=== PATIENT | female | born 1950 | race Caucasian/White ===

== ENCOUNTER 2018-12-07 17:29 | Inpatient (IN) | payer MEDICARE, OTHER ==
--- NOTE | 2018-12-07 17:51 | ED Physician Chart ---
ED Chief Complaint/HPI - Patient Information Date Seen:: 12/07/18 Time Seen:: 17:45 Chief Complaint:: change mental status withpre existing Allergies:: Allergies Allergy/AdvReac Type Severity Reaction Status Date / Time No Known Allergies Allergy Verified 12/07/18 17:35 Vitals:: Vital Signs - 8 hr 12/07/18 17:36 Temp 97.3 F HR 74 RR 18 BP 138/68 O2 Sat % 98 Review:: Nurse's Note Reviewed, Transfer documents Reviewed ED Review of Systems - Review of Systems General/Constitutional: No fever (equivocal historian) ED Past Medical History - Past Medical History Past Medical History: HTN, Dementia Social History: Alcohol ED Physical Exam - Physical Examination General/Constitutional: Alert, No distress, Non-toxic appearing Head: Atraumatic Eyes: Lids, conjuctiva normal Skin: Nl inspection ENMT: External ears, nose nl Neck: Nontender Respiratory: Nl effort/Exclusion Cardio Vascular: RRR GI: No tenderness/rebounding/guarding : No CVA tenderness Extremities: No tenderness or effusion Neuro/Psych: Alert/oriented Misc: Normal back ED Assessment - Assessment General Assessment: psyche break ED Septic Shock - . Is Septic Shock (SBP<90, OR Lactate>4 mmol\L) present?: No - <6hrs of presentation: Vital Signs: Vital Signs - 8 hr 12/07/18 17:36 Temp 97.3 F HR 74 RR 18 BP 138/68 O2 Sat % 98 ED Reassessment (Disposition) - Reassessment Reassessment Condition:: Unchanged - Patient Disposition Discharge/Transfer:: Acute Care w/in this hosp
[2018-12-07 18:05] LABS: % BASOPHILS 0.6 % (0.0-2.0); % EOSINOPHILS 2.6 % (0.0-5.0); % LYMPHOCYTES 28.4 % (20.0-50.0); % MONOCYTES 7.2 % (2.0-10.0); % NEUTROPHILS 61.2 % (40.0-80.0); BASOPHILE ABSOLUTE 0.1 Th/cumm (0-0.2); EOSINOPHILE ABSOLUTE 0.2 Th/cmm (0.1-0.4); HEMATOCRIT 41.4 % (41.0-60); HEMOGLOBIN 13.2 gm/dL (12-16); LYMPHOCYTE ABSOLUTE 2.5 Th/cmm (1.5-3.0); MEAN CELL VOLUME 87.8 fl (81-100); MEAN CORPUSCULAR HGB CONC 31.9 pg (28.0-36.0); MEAN PLATELET VOLUME 8.5 fl; MONOCYTE ABSOLUTE 0.6 Th/cmm (0.3-1.0); NEUTROPHILE ABSOLUTE 5.4 Th/cmm (1.8-8.0); PLATELET COUNT 257 Th/cmm (150-400); RED BLOOD COUNT 4.71 Mil/cmm (3.80-5.20); RED CELL DISTRIBUTION WIDTH 13.2 % (11.5-20.0); WHITE BLOOD COUNT 8.8 Th/cmm (4.8-10.8)
[2018-12-07 18:23] LABS: ALB/GLOB RATIO 1.4 (1.0-1.8); ALBUMIN 4.2 gm/dL (3.7-5.3); ALKALINE PHOSPHATASE 62 U/L (34-104); ANION GAP 11.6 (7.0-16.0); BILIRUBIN,TOTAL 0.4 mg/dL (0.3-1.0); BUN - UREA NITROGEN 17 mg/dL (7-25); CALCIUM SERUM 10.4 mg/dL (8.6-10.3); CARBON DIOXIDE 24.4 mEq/L (21.0-31.0); CHLORIDE 104 mEq/L (98-107); CREATININE - SERUM 0.7 mg/dL (0.6-1.2); GFR AFRICAN-AMERICAN > 60.0 ml/min (>90); GFR NON AFRICAN-AMERICAN > 60.0 ml/min; GLUCOSE 102 mg/dL (70-105); SGOT 18 U/L (13-39); SGPT/ALT 17 U/L (7-52); SODIUM SERUM 136 mEq/L (136-145); TOTAL PROTEIN,SERUM 7.3 gm/dL (6.0-8.3)
[2018-12-07 19:59] VITALS: BP 128/70
[2018-12-07] MEDS ORDERED: Non-Formulary Item 1 EA (Atorvastatin Calcium [Lipitor] 1 TAB) PO SCH (21:00)
[2018-12-08 07:23] LABS: CHOLESTEROL 169 mg/dL (<200); HDL -HIGH DENSITY LIPOPROTEIN 44 mg/dL (23-92); TRIGLYCERIDES 109 mg/dL (<150)
--- NOTE | 2018-12-08 08:10 | History and Physical ---
History of Present Illness - HPI Chief Complaint: Psychosis HPI: 68 y/o female who presents to [facility] from [facility] from [place], [place] for change in behavior and increase agitation, confusion, and disorientation. Patient has a PMH which includes Alzheimer's dementia, HTN, Hyperlipidemia, Depression, hypokalemia. While in the ER patient had initial labwork which revealed the following... Na 136 K 4.0 Bun/Cr 17/0.7 glu 102 WBC 8.8 H/H 13.2/41.4 plat 257K Patient was subsequently admitted for further evaluation and treatment. Vital Signs: Last Vital Signs Temp 97.6 F 12/08/18 06:22 Pulse 54 12/08/18 06:22 Resp 18 12/08/18 06:22 BP 147/76 12/08/18 06:22 Pulse Ox 98 12/08/18 06:22 Past Medical History Cardiovascular: Report: HTN, Hyperlipidemia Pulmonary: Report: No Pertinent Hx STUDENT RECRUITER: Report: Dementia GI: Report: No Pertinent Hx Psych: Report: Anxiety, Depression, Psychosis Musculoskeletal: Report: No Pertinent Hx Rheumatologic: Report: No pertinent Hx Infectious Disease: Report: No Pertinent Hx Renal/: Report: No Pertinent Hx Endocrine: Report: No Pertinent Hx Dermatology: Report: No Pertinent Hx - Past Surgical History Past Surgical History: No pertinent Hx Family Medical History - Family Member Mother History Unknown: Yes Social History Smoke: No Alcohol: None Drugs: None Lives: [facility] - Medications Home Medications: Home Medication Medication Instructions Recorded Type Atorvastatin Calcium [Lipitor] 1 tab PO HS 12/07/18 History Benazepril [Lotensin] 1 tab PO DAILY 12/07/18 History Escitalopram Oxalate [Lexapro] 1 tab PO DAILY 12/07/18 History Sennosides [Senna Laxative] 1 tab PO DAILY 12/07/18 History Thiamine [Vitamin B1] 1 tab PO DAILY 12/07/18 History - Allergies Allergies/Adverse Reactions: Allergies Allergy/AdvReac Type Severity Reaction Status Date / Time No Known Allergies Allergy Verified 12/07/18 17:35 Review of Systems - Review of Systems Constitutional: Report: No Significant Eyes: Report: No Significant ENT: Report: No Significant Respiratory: Report: No Significant Cardiovascular: Report: No Significant Gastrointestinal: Report: No Significant Genitourinary: Report: No Significant Musculoskeletal: Report: No Significant Skin: Report: No Significant Neurological: Report: No Significant Physical Exam - Physical Exam HEENT: Report: Ears Nose Throat within normal limits, Pharnyx within normal limits Neck: Report: Within normal limits Cardiovascular Systems: Report: +s1/s2 noted, Regular, Rate and Rhythm Respiratory: Report: Breath Sounds are within normal limits, Clear to Auscultation of lung engle Abdomen: Report: Non-tender to palpation Back: Report: Inspection of back is within normal limits. Extremities: Report: Non-tender to palpation. Skin: Report: Color of skin is within normal limits Neuro/Psych: Report: Mood affect is within normal limits - Lab Results All Lab Results last 24 hours: Laboratory Results - last 24 hr 12/07/18 12/07/18 12/07/18 17:55 17:55 17:55 WBC 8.8 RBC 4.71 Hgb 13.2 Hct 41.4 MCV 87.8 MCH 28.0 MCHC Differential 31.9 RDW 13.2 Plt Count 257 MPV 8.5 Neutrophils % 61.2 Lymphocytes % 28.4 Monocytes % 7.2 Eosinophils % 2.6 Basophils % 0.6 Sodium 136 Potassium 4.0 Chloride 104 Carbon Dioxide 24.4 Anion Gap 11.6 BUN 17 Creatinine 0.7 Est GFR ( Amer) > 60.0 Est GFR (Non-Af Amer) > 60.0 BUN/Creatinine Ratio 24.3 Glucose 102 Calcium 10.4 H Total Bilirubin 0.4 AST 18 ALT 17 Alkaline Phosphatase 62 Total Protein 7.3 Albumin 4.2 Globulin 3.1 Albumin/Globulin Ratio 1.4 Triglycerides 109 Cholesterol 169 LDL Cholesterol Direct 107 HDL Cholesterol 44 - Assessment Assessment: Psychosis alzheimer's dementia htn depression hyperlipidemia hypokalemia - Plan Plan: admit to [facility]. continue home meds.
--- NOTE | 2018-12-08 15:27 | Discharge Summary ---
DATE OF DISCHARGE: 12/08/2018 BLANK DICTATION JOB# [id number]
--- NOTE | 2018-12-08 22:12 | Psychiatric Evaluation ---
DATE OF SERVICE: 12/07/2018 PATIENT'S AGE: 68 SEX: Female. PHYSICIAN: Dr. Phillips. CHIEF COMPLAINT: "Want to kill herself." HISTORY OF PRESENT ILLNESS: The patient is a 68-year-old female who was admitted to the hospital because the patient had suicidal ideations and the patient wants to kill herself. The patient since arrival to the hospital continued to ask the staff to help her in order to . She also has been anxious and restless and trying to figure out somehow in order to kill herself. The patient was placed on 1:1 observation because her desire to kill herself that has been strong. In talking to her, the patient has no specific plans to hurt herself, but yet asking staff to help her to . The patient has no specific reason why she wants to , but she has been increasingly agitated and confused in the prison as well as in the hospital. PAST PSYCHIATRIC HISTORY: The patient has a diagnosis of dementia. She also has history of depression and she is taking Lexapro. PAST MEDICAL HISTORY: The patient has a history of hypertension as well as hyperlipidemia and diabetes mellitus. SOCIAL HISTORY: The patient lives in [facility]. No known alcohol or drug use. No legal issues or abuse issues. ALLERGIES: No known allergies. MENTAL STATUS EXAMINATION: The patient appears her stated age. Anxious. Sad affect. Irritable mood. Thought processes are circumstantial with flight of ideas. The patient seems to be preoccupied, but denies auditory or visual hallucinations. Seems to be paranoid. The patient admits to suicidal ideations with no specific plans, but denies any homicidal ideations. The patient is alert and oriented to situation, but not to the place or person or date. Impaired immediate and recent memory, but intact remote memory. Poor insight and poor judgment. She seems to be of average intelligence based on her verbal ability. ASSESSMENT: PRIMARY DIAGNOSIS: Major depression, severe, recurrent, with psychotic features. SECONDARY DIAGNOSIS: Dementia, moderate to severe. TREATMENT PLAN: We will monitor the patient's behavior and her condition closely. We will start individual as well as milieu psychotherapy. Also we will adjust psychotropic medications. ESTIMATED LENGTH OF STAY: 5-7 days. PATIENT'S STRENGTHS AND WEAKNESSES: The patient's strength is not clear at this time. Weakness is her ineffective coping. AFTER DISCHARGE PLAN: Outpatient treatment and followup and the patient will return to [facility]. JOB# [id number]
[2018-12-09] MEDS ORDERED: Haloperidol Lactate 5 mg/mL 1mL Vial IM ONE (08:10)
[2018-12-09] MEDS ORDERED: Haloperidol Lactate 5 mg/mL 1mL Vial ONE (08:17)
--- NOTE | 2018-12-09 08:18 | General Progress Note ---
Subjective - Review of Systems Service Date: 12/09/18 Subjective: Patient is awake, alert, no acute distress VS T 97 P 71 R 19 BP 162/71 Objective - Results Result Diagrams: 12/07/18 17:55 12/07/18 17:55 Recent Labs: Laboratory Last Values WBC 8.8 Th/cmm (4.8-10.8) 12/07/18 17:55 RBC 4.71 Mil/cmm (3.80-5.20) 12/07/18 17:55 Hgb 13.2 gm/dL (12-16) 12/07/18 17:55 Hct 41.4 % (41.0-60) 12/07/18 17:55 MCV 87.8 fl (81-100) 12/07/18 17:55 MCH 28.0 pg (27.0-31.0) 12/07/18 17:55 MCHC Differential 31.9 pg (28.0-36.0) 12/07/18 17:55 RDW 13.2 % (11.5-20.0) 12/07/18 17:55 Plt Count 257 Th/cmm (150-400) 12/07/18 17:55 MPV 8.5 fl 12/07/18 17:55 Neutrophils % 61.2 % (40.0-80.0) 12/07/18 17:55 Lymphocytes % 28.4 % (20.0-50.0) 12/07/18 17:55 Monocytes % 7.2 % (2.0-10.0) 12/07/18 17:55 Eosinophils % 2.6 % (0.0-5.0) 12/07/18 17:55 Basophils % 0.6 % (0.0-2.0) 12/07/18 17:55 Sodium 136 mEq/L (136-145) 12/07/18 17:55 Potassium 4.0 mEq/L (3.5-5.1) 12/07/18 17:55 Chloride 104 mEq/L (98-107) 12/07/18 17:55 Carbon Dioxide 24.4 mEq/L (21.0-31.0) 12/07/18 17:55 Anion Gap 11.6 (7.0-16.0) 12/07/18 17:55 BUN 17 mg/dL (7-25) 12/07/18 17:55 Creatinine 0.7 mg/dL (0.6-1.2) 12/07/18 17:55 Est GFR ( Amer) > 60.0 ml/min (>90) 12/07/18 17:55 Est GFR (Non-Af Amer) > 60.0 ml/min 12/07/18 17:55 BUN/Creatinine Ratio 24.3 12/07/18 17:55 Glucose 102 mg/dL (70-105) 12/07/18 17:55 Calcium 10.4 mg/dL (8.6-10.3) H 12/07/18 17:55 Total Bilirubin 0.4 mg/dL (0.3-1.0) 12/07/18 17:55 AST 18 U/L (13-39) 12/07/18 17:55 ALT 17 U/L (7-52) 12/07/18 17:55 Alkaline Phosphatase 62 U/L (34-104) 12/07/18 17:55 Total Protein 7.3 gm/dL (6.0-8.3) 12/07/18 17:55 Albumin 4.2 gm/dL (3.7-5.3) 12/07/18 17:55 Globulin 3.1 gm/dL 12/07/18 17:55 Albumin/Globulin Ratio 1.4 (1.0-1.8) 12/07/18 17:55 Triglycerides 109 mg/dL (<150) 12/07/18 17:55 Cholesterol 169 mg/dL (<200) 12/07/18 17:55 LDL Cholesterol Direct 107 mg/dL (75-193) 12/07/18 17:55 HDL Cholesterol 44 mg/dL (23-92) 12/07/18 17:55 - Physical Exam Vitals and I&O: Vital Signs Temp 97 F 12/09/18 06:40 Pulse 71 12/09/18 06:40 Resp 19 12/09/18 06:40 BP 162/71 12/09/18 06:40 Pulse Ox 100 12/09/18 06:40 Intake & Output 12/08/18 12/09/18 12/09/18 18:59 06:59 18:59 Intake Total 1500 120 Balance 1500 120 Intake: Oral 1500 120 Other: # Voids 3 3 # Bowel Movements 0 Active Medications: Current Medications Aripiprazole (Abilify) 5 mg PO DAILY [facility]; Protocol Stop: 02/06/19 08:59 Last Admin: 12/08/18 08:47 Dose: 5 mg Atorvastatin Calcium (Lipitor) 40 mg PO HS [facility] Stop: 02/05/19 20:59 Last Admin: 12/08/18 21:35 Dose: 40 mg Benazepril HCl (Lotensin) 20 mg PO DAILY [facility] Stop: 02/06/19 08:59 Last Admin: 12/08/18 08:44 Dose: Not Given Diphenhydramine HCl (Benadryl 50 Mg/Ml) 25 mg IM X1 ONE Stop: 12/09/18 08:10 Escitalopram Oxalate (Lexapro) 10 mg PO DAILY [facility]; Protocol Stop: 02/06/19 08:59 Last Admin: 12/08/18 08:44 Dose: 10 mg Haloperidol Lactate (Haldol) 5 mg IM X1 ONE Stop: 12/09/18 08:11 Lorazepam (Ativan) 0.5 mg PO Q4HR PRN; Protocol PRN Reason: Anxiety Stop: 01/06/19 20:08 Last Admin: 12/08/18 14:53 Dose: 0.5 mg Lorazepam (Ativan) 1 mg IM NOW ONE; Protocol Stop: 12/09/18 08:09 Senna (Senna) 8.6 mg PO DAILY [facility] Stop: 02/06/19 08:59 Last Admin: 12/08/18 08:44 Dose: 8.6 mg Thiamine HCl (Vitamin B1) 100 mg PO DAILY [facility] Stop: 02/06/19 08:59 Last Admin: 12/08/18 08:44 Dose: 100 mg Zolpidem Tartrate (Ambien) 5 mg PO HS PRN PRN Reason: Insomnia Stop: 02/05/19 20:08 Last Admin: 12/08/18 21:35 Dose: 5 mg General: Alert, Oriented x3, No acute distress HEENT: Atraumatic, PERRLA, EOMI Neck: Supple Cardiovascular: Regular rate, Normal S1, Normal S2 Lungs: Clear to auscultation Abdomen: Bowel sounds, Soft Extremities: no Clubbing, no Cyanosis, no Edema Assessment/Plan - Assessment Assessment: psychosis alzheimer's dementia htn elevated ... add clonidine depression hyperlipidemia hypokalemia - Plan Plan: admit to [facility]. continue home meds.
--- NOTE | 2018-12-10 00:56 | Progress Notes ---
DATE: 12/09/2018 SUBJECTIVE: Chart was reviewed and the patient interviewed. Also, discussed the patient's condition with the staff and reviewed records and labs. The patient continued to be in irritable mood and she is still paranoid and fearful, talking about people are going to kill her, but she is not mentioning about her desire to kill herself ____ somebody else will kill her. She is still suspicious and is still paranoid and needs close monitoring. She also is still have episodes of irritability and anger, but slightly easier to redirect. The patient also is compliant with taking her medications with no side effects of medications. ASSESSMENT: The patient is still psychotic and easily agitated. TREATMENT PLAN: Continue to monitor her behavior and her condition closely. Also, continue current psychotropic medications and follow up closely. [facility]# [id number]
--- NOTE | 2018-12-10 08:06 | General Progress Note ---
Subjective - Review of Systems Service Date: 12/10/18 Subjective: Patient is awake, alert, no acute distress VS T 98.7 P 86 R 18 BP 136/76 Objective - Results Result Diagrams: 12/07/18 17:55 12/07/18 17:55 Recent Labs: Laboratory Last Values WBC 8.8 Th/cmm (4.8-10.8) 12/07/18 17:55 RBC 4.71 Mil/cmm (3.80-5.20) 12/07/18 17:55 Hgb 13.2 gm/dL (12-16) 12/07/18 17:55 Hct 41.4 % (41.0-60) 12/07/18 17:55 MCV 87.8 fl (81-100) 12/07/18 17:55 MCH 28.0 pg (27.0-31.0) 12/07/18 17:55 MCHC Differential 31.9 pg (28.0-36.0) 12/07/18 17:55 RDW 13.2 % (11.5-20.0) 12/07/18 17:55 Plt Count 257 Th/cmm (150-400) 12/07/18 17:55 MPV 8.5 fl 12/07/18 17:55 Neutrophils % 61.2 % (40.0-80.0) 12/07/18 17:55 Lymphocytes % 28.4 % (20.0-50.0) 12/07/18 17:55 Monocytes % 7.2 % (2.0-10.0) 12/07/18 17:55 Eosinophils % 2.6 % (0.0-5.0) 12/07/18 17:55 Basophils % 0.6 % (0.0-2.0) 12/07/18 17:55 Sodium 136 mEq/L (136-145) 12/07/18 17:55 Potassium 4.0 mEq/L (3.5-5.1) 12/07/18 17:55 Chloride 104 mEq/L (98-107) 12/07/18 17:55 Carbon Dioxide 24.4 mEq/L (21.0-31.0) 12/07/18 17:55 Anion Gap 11.6 (7.0-16.0) 12/07/18 17:55 BUN 17 mg/dL (7-25) 12/07/18 17:55 Creatinine 0.7 mg/dL (0.6-1.2) 12/07/18 17:55 Est GFR ( Amer) > 60.0 ml/min (>90) 12/07/18 17:55 Est GFR (Non-Af Amer) > 60.0 ml/min 12/07/18 17:55 BUN/Creatinine Ratio 24.3 12/07/18 17:55 Glucose 102 mg/dL (70-105) 12/07/18 17:55 Calcium 10.4 mg/dL (8.6-10.3) H 12/07/18 17:55 Total Bilirubin 0.4 mg/dL (0.3-1.0) 12/07/18 17:55 AST 18 U/L (13-39) 12/07/18 17:55 ALT 17 U/L (7-52) 12/07/18 17:55 Alkaline Phosphatase 62 U/L (34-104) 12/07/18 17:55 Total Protein 7.3 gm/dL (6.0-8.3) 12/07/18 17:55 Albumin 4.2 gm/dL (3.7-5.3) 12/07/18 17:55 Globulin 3.1 gm/dL 12/07/18 17:55 Albumin/Globulin Ratio 1.4 (1.0-1.8) 12/07/18 17:55 Triglycerides 109 mg/dL (<150) 12/07/18 17:55 Cholesterol 169 mg/dL (<200) 12/07/18 17:55 LDL Cholesterol Direct 107 mg/dL (75-193) 12/07/18 17:55 HDL Cholesterol 44 mg/dL (23-92) 12/07/18 17:55 - Physical Exam Vitals and I&O: Vital Signs Temp 98.7 F 12/10/18 06:04 Pulse 86 12/10/18 06:04 Resp 18 12/10/18 06:04 BP 136/76 12/10/18 06:04 Pulse Ox 97 12/10/18 06:04 Intake & Output 12/09/18 12/10/18 12/10/18 18:59 06:59 18:59 Intake Total 1000 Balance 1000 Intake: Oral 1000 Other: # Voids 3 2 # Bowel Movements 1 0 Active Medications: Current Medications Aripiprazole (Abilify) 10 mg PO HS [facility]; Protocol Stop: 02/08/19 20:59 Atorvastatin Calcium (Lipitor) 40 mg PO HS [facility] Stop: 02/05/19 20:59 Last Admin: 12/09/18 20:53 Dose: 40 mg Benazepril HCl (Lotensin) 20 mg PO DAILY [facility] Stop: 02/06/19 08:59 Last Admin: 12/09/18 09:26 Dose: 20 mg Escitalopram Oxalate (Lexapro) 10 mg PO DAILY [facility]; Protocol Stop: 02/06/19 08:59 Last Admin: 12/09/18 09:27 Dose: 10 mg Lorazepam (Ativan) 0.5 mg PO Q4HR PRN; Protocol PRN Reason: Anxiety Stop: 01/06/19 20:08 Last Admin: 12/10/18 00:44 Dose: 0.5 mg Senna (Senna) 8.6 mg PO DAILY [facility] Stop: 02/06/19 08:59 Last Admin: 12/09/18 09:27 Dose: 8.6 mg Thiamine HCl (Vitamin B1) 100 mg PO DAILY [facility] Stop: 02/06/19 08:59 Last Admin: 12/09/18 09:27 Dose: 100 mg Zolpidem Tartrate (Ambien) 5 mg PO HS PRN PRN Reason: Insomnia Stop: 02/05/19 20:08 Last Admin: 12/09/18 23:35 Dose: 5 mg General: Alert, Oriented x3, No acute distress HEENT: Atraumatic, PERRLA, EOMI Neck: Supple Cardiovascular: Regular rate, Normal S1, Normal S2 Lungs: Clear to auscultation Abdomen: Bowel sounds, Soft Extremities: no Clubbing, no Cyanosis, no Edema Assessment/Plan - Assessment Assessment: psychosis alzheimer's dementia htn elevated ... add clonidine depression hyperlipidemia hypokalemia - Plan Plan[facility]. continue home meds.
--- NOTE | 2018-12-10 23:24 | Progress Notes ---
DATE: SUBJECTIVE: Chart reviewed and the patient interviewed. Also discussed the patient's condition with the staff and reviewed records and labs. The patient is still confused. The patient also is still talking nonsense and she is still unable to provide any safe plan for her self care. The patient also still talking about her desire to be killed and wants somebody to kill her. The patient also still having unsteady gait and tries to get off bed. She still continued to be on 1:1 observation for her psychosis and for her high fall risk. TREATMENT PLAN: Continue to monitor her behavior and her condition closely. Also, we will increase Abilify to 10 mg and we will change it be given at bedtime. Also, we will continue to work on her confusion and her agitation and will continue to follow up. JOB# [id number]
--- NOTE | 2018-12-11 05:37 | General Progress Note ---
Subjective - Review of Systems Service Date: 12/11/18 Subjective: Patient is awake, alert, no acute distress VS T 97.1 P 72 R 18 BP 138/71 Objective - Results Result Diagrams: 12/07/18 17:55 12/07/18 17:55 Recent Labs: Laboratory Last Values WBC 8.8 Th/cmm (4.8-10.8) 12/07/18 17:55 RBC 4.71 Mil/cmm (3.80-5.20) 12/07/18 17:55 Hgb 13.2 gm/dL (12-16) 12/07/18 17:55 Hct 41.4 % (41.0-60) 12/07/18 17:55 MCV 87.8 fl (81-100) 12/07/18 17:55 MCH 28.0 pg (27.0-31.0) 12/07/18 17:55 MCHC Differential 31.9 pg (28.0-36.0) 12/07/18 17:55 RDW 13.2 % (11.5-20.0) 12/07/18 17:55 Plt Count 257 Th/cmm (150-400) 12/07/18 17:55 MPV 8.5 fl 12/07/18 17:55 Neutrophils % 61.2 % (40.0-80.0) 12/07/18 17:55 Lymphocytes % 28.4 % (20.0-50.0) 12/07/18 17:55 Monocytes % 7.2 % (2.0-10.0) 12/07/18 17:55 Eosinophils % 2.6 % (0.0-5.0) 12/07/18 17:55 Basophils % 0.6 % (0.0-2.0) 12/07/18 17:55 Sodium 136 mEq/L (136-145) 12/07/18 17:55 Potassium 4.0 mEq/L (3.5-5.1) 12/07/18 17:55 Chloride 104 mEq/L (98-107) 12/07/18 17:55 Carbon Dioxide 24.4 mEq/L (21.0-31.0) 12/07/18 17:55 Anion Gap 11.6 (7.0-16.0) 12/07/18 17:55 BUN 17 mg/dL (7-25) 12/07/18 17:55 Creatinine 0.7 mg/dL (0.6-1.2) 12/07/18 17:55 Est GFR ( Amer) > 60.0 ml/min (>90) 12/07/18 17:55 Est GFR (Non-Af Amer) > 60.0 ml/min 12/07/18 17:55 BUN/Creatinine Ratio 24.3 12/07/18 17:55 Glucose 102 mg/dL (70-105) 12/07/18 17:55 Calcium 10.4 mg/dL (8.6-10.3) H 12/07/18 17:55 Total Bilirubin 0.4 mg/dL (0.3-1.0) 12/07/18 17:55 AST 18 U/L (13-39) 12/07/18 17:55 ALT 17 U/L (7-52) 12/07/18 17:55 Alkaline Phosphatase 62 U/L (34-104) 12/07/18 17:55 Total Protein 7.3 gm/dL (6.0-8.3) 12/07/18 17:55 Albumin 4.2 gm/dL (3.7-5.3) 12/07/18 17:55 Globulin 3.1 gm/dL 12/07/18 17:55 Albumin/Globulin Ratio 1.4 (1.0-1.8) 12/07/18 17:55 Triglycerides 109 mg/dL (<150) 12/07/18 17:55 Cholesterol 169 mg/dL (<200) 12/07/18 17:55 LDL Cholesterol Direct 107 mg/dL (75-193) 12/07/18 17:55 HDL Cholesterol 44 mg/dL (23-92) 12/07/18 17:55 - Physical Exam Vitals and I&O: Vital Signs Temp 97.1 F 12/10/18 20:59 Pulse 72 12/10/18 20:59 Resp 18 12/10/18 20:59 BP 138/71 12/10/18 20:59 Pulse Ox 98 12/10/18 20:59 Intake & Output 12/10/18 12/10/18 12/11/18 06:59 18:59 06:59 Intake Total 1000 120 Balance 1000 120 Intake: Oral 1000 120 Other: # Voids 2 4 # Bowel Movements 0 0 Active Medications: Current Medications Aripiprazole (Abilify) 10 mg PO HS [facility]; Protocol Stop: 02/08/19 20:59 Last Admin: 12/10/18 20:24 Dose: 10 mg Atorvastatin Calcium (Lipitor) 40 mg PO HS [facility] Stop: 02/05/19 20:59 Last Admin: 12/10/18 20:25 Dose: 40 mg Benazepril HCl (Lotensin) 20 mg PO DAILY [facility] Stop: 02/06/19 08:59 Last Admin: 12/10/18 08:19 Dose: 20 mg Escitalopram Oxalate (Lexapro) 10 mg PO DAILY [facility]; Protocol Stop: 02/06/19 08:59 Last Admin: 12/10/18 08:20 Dose: 10 mg Lorazepam (Ativan) 0.5 mg PO Q4HR PRN; Protocol PRN Reason: Anxiety Stop: 01/06/19 20:08 Last Admin: 12/10/18 00:44 Dose: 0.5 mg Senna (Senna) 8.6 mg PO DAILY [facility] Stop: 02/06/19 08:59 Last Admin: 12/10/18 08:20 Dose: 8.6 mg Thiamine HCl (Vitamin B1) 100 mg PO DAILY [facility] Stop: 02/06/19 08:59 Last Admin: 12/10/18 08:20 Dose: 100 mg Zolpidem Tartrate (Ambien) 5 mg PO HS PRN PRN Reason: Insomnia Stop: 02/05/19 20:08 Last Admin: 12/10/18 20:30 Dose: 5 mg General: Alert, Oriented x3, No acute distress HEENT: Atraumatic, PERRLA, EOMI Neck: Supple Cardiovascular: Regular rate, Normal S1, Normal S2 Lungs: Clear to auscultation Abdomen: Bowel sounds, Soft Extremities: no Clubbing, no Cyanosis, no Edema Assessment/Plan - Assessment Assessment: psychosis alzheimer's dementia htn elevated ... add clonidine depression hyperlipidemia hypokalemia - Plan Plan: admit to [facility]. continue home meds. Nutritional Asmnt/Malnutr-PDOC - Dietary Evaluation Malnutrition Findings (Please click <Entered> for more info): Nutritional Asmnt/Malnutrition Start: 12/10/18 11: 27 Text: Status: Complete Freq: Protocol: Document 12/10/18 11:27 [facility] (Rec: 12/10/18 11:32 [facility] NATALIA-FNS1) Nutritional Asmnt/Malnutrition Patient General Information Nutritional Screening Moderate Risk Diagnosis psychosis Pertinent Medical Hx/Surgical Hx HTN, dementia Subjective Information Pt seen in [facility] in dining room. Per EMR, PO intake 100% . Current Diet Order/ Nutrition Support cardiac, RUFINO Pertinent Medications lipitor, senna, vit B1 Pertinent Labs 12/07 Ca 10.4 Nutritional Hx/Data Height 1.6 m Height (Calculated Centimeters) 160.0 Current Weight (lbs) 51.71 kg Weight (Calculated Kilograms) 51.7 Weight (Calculated Grams) 72222.5 Newcomb Body Weight 120 Body Mass Index (BMI) 20.2 Weight Status Approriate GI Symptoms GI Symptoms None Last BM 5/2 Difficult in: None Skin Integrity/Comment: dryness, kimberley 20 Current %PO Good (75-100%) Estimated Nutritional Goals BEE in Kcals: Using Current wt Calories/Kcals/Kg 25-30 Kcals Calculated 2858-0262 Protein: Using Current wt Protein g/k Protein Calculated 52 Fluid: ml 1300-1560ml (1ml/kcal) Nutritional Problem No current Nutrition Prob Problem N/A Malnutrition Alert Is there a minimum of two criteria No selected? Query Text:Check all the applicable criteria. A minimum of two criteria are recommended for diagnosis of either severe or non-severe malnutrition. Malnutrition Related to Morbid Obesity Malnutrition related to morbid obesity No Intervention/Recommendation Comments 1. Continue with cardiac RUFINO diet as ordered. 2. Monitor PO intake, wt, labs and skin integrity 3. F/U as low risk in 7 days Expected Outcomes/Goals Expected Outcomes/Goals 1. PO intake to meet at least 75% of nutritional needs. 2. Wt stability, skin to remain intact, labs to approach WNL.
--- NOTE | 2018-12-11 21:40 | Progress Notes ---
DATE: 12/11/[address] Phillips. Case was discussed with staff of the patient, reviewed records. This is a 68-year-old female who was admitted on 12/07/2018 because the patient was having suicidal ideation. She wanted to kill herself. The patient has been anxious, restless, trying to figure out how to kill herself. The patient was placed on 1:1 observation because of her desire to kill herself. The patient has no specific plan to hurt herself, but asking staff to help her to . The patient with a diagnosis of dementia with a history of depression and taking Lexapro. The patient continues to be depressed, confused, sometimes not making sense, unable to make safe plan for self-care. The patient continues to be on 1:1 because of her suicidal thoughts. has been on Lexapro 10 mg daily, Abilify 10 mg at bedtime. I will be adding Aricept to her medication 5 mg at bedtime. We will continue outpatient group therapy, milieu therapy, adjust medication as needed. JOB# [id number] [place]
--- NOTE | 2018-12-12 05:35 | General Progress Note ---
Subjective - Review of Systems Service Date: 12/12/18 Subjective: Patient is awake, alert, no acute distress VS T 97.4 P 86 R 19 BP 116/58 Objective - Results Result Diagrams: 12/07/18 17:55 12/07/18 17:55 Recent Labs: Laboratory Last Values WBC 8.8 Th/cmm (4.8-10.8) 12/07/18 17:55 RBC 4.71 Mil/cmm (3.80-5.20) 12/07/18 17:55 Hgb 13.2 gm/dL (12-16) 12/07/18 17:55 Hct 41.4 % (41.0-60) 12/07/18 17:55 MCV 87.8 fl (81-100) 12/07/18 17:55 MCH 28.0 pg (27.0-31.0) 12/07/18 17:55 MCHC Differential 31.9 pg (28.0-36.0) 12/07/18 17:55 RDW 13.2 % (11.5-20.0) 12/07/18 17:55 Plt Count 257 Th/cmm (150-400) 12/07/18 17:55 MPV 8.5 fl 12/07/18 17:55 Neutrophils % 61.2 % (40.0-80.0) 12/07/18 17:55 Lymphocytes % 28.4 % (20.0-50.0) 12/07/18 17:55 Monocytes % 7.2 % (2.0-10.0) 12/07/18 17:55 Eosinophils % 2.6 % (0.0-5.0) 12/07/18 17:55 Basophils % 0.6 % (0.0-2.0) 12/07/18 17:55 Sodium 136 mEq/L (136-145) 12/07/18 17:55 Potassium 4.0 mEq/L (3.5-5.1) 12/07/18 17:55 Chloride 104 mEq/L (98-107) 12/07/18 17:55 Carbon Dioxide 24.4 mEq/L (21.0-31.0) 12/07/18 17:55 Anion Gap 11.6 (7.0-16.0) 12/07/18 17:55 BUN 17 mg/dL (7-25) 12/07/18 17:55 Creatinine 0.7 mg/dL (0.6-1.2) 12/07/18 17:55 Est GFR ( Amer) > 60.0 ml/min (>90) 12/07/18 17:55 Est GFR (Non-Af Amer) > 60.0 ml/min 12/07/18 17:55 BUN/Creatinine Ratio 24.3 12/07/18 17:55 Glucose 102 mg/dL (70-105) 12/07/18 17:55 Calcium 10.4 mg/dL (8.6-10.3) H 12/07/18 17:55 Total Bilirubin 0.4 mg/dL (0.3-1.0) 12/07/18 17:55 AST 18 U/L (13-39) 12/07/18 17:55 ALT 17 U/L (7-52) 12/07/18 17:55 Alkaline Phosphatase 62 U/L (34-104) 12/07/18 17:55 Total Protein 7.3 gm/dL (6.0-8.3) 12/07/18 17:55 Albumin 4.2 gm/dL (3.7-5.3) 12/07/18 17:55 Globulin 3.1 gm/dL 12/07/18 17:55 Albumin/Globulin Ratio 1.4 (1.0-1.8) 12/07/18 17:55 Triglycerides 109 mg/dL (<150) 12/07/18 17:55 Cholesterol 169 mg/dL (<200) 12/07/18 17:55 LDL Cholesterol Direct 107 mg/dL (75-193) 12/07/18 17:55 HDL Cholesterol 44 mg/dL (23-92) 12/07/18 17:55 - Physical Exam Vitals and I&O: Vital Signs Temp 97.4 F 12/11/18 22:34 Pulse 86 12/11/18 22:34 Resp 19 12/11/18 22:34 BP 116/58 12/11/18 22:34 Pulse Ox 96 12/11/18 22:34 Intake & Output 12/11/18 12/11/18 12/12/18 06:59 18:59 06:59 Intake Total 120 960 Balance 120 960 Intake: Oral 120 960 Other: # Voids 3 # Bowel Movements 1 Active Medications: Current Medications Aripiprazole (Abilify) 10 mg PO HS [facility]; Protocol Stop: 02/08/19 20:59 Last Admin: 12/11/18 22:00 Dose: Not Given Atorvastatin Calcium (Lipitor) 40 mg PO HS [facility] Stop: 02/05/19 20:59 Last Admin: 12/11/18 22:00 Dose: Not Given Benazepril HCl (Lotensin) 20 mg PO DAILY [facility] Stop: 02/06/19 08:59 Last Admin: 12/11/18 09:07 Dose: 20 mg Donepezil HCl (Aricept) 5 mg PO HS [facility] Stop: 02/09/19 20:59 Last Admin: 12/11/18 22:00 Dose: Not Given Escitalopram Oxalate (Lexapro) 10 mg PO DAILY [facility]; Protocol Stop: 02/06/19 08:59 Last Admin: 12/11/18 09:08 Dose: 10 mg Lorazepam (Ativan) 0.5 mg PO Q4HR PRN; Protocol PRN Reason: Anxiety Stop: 01/06/19 20:08 Last Admin: 12/11/18 15:53 Dose: 0.5 mg Senna (Senna) 8.6 mg PO DAILY [facility] Stop: 02/06/19 08:59 Last Admin: 12/11/18 09:08 Dose: 8.6 mg Thiamine HCl (Vitamin B1) 100 mg PO DAILY [facility] Stop: 02/06/19 08:59 Last Admin: 12/11/18 09:08 Dose: 100 mg Zolpidem Tartrate (Ambien) 5 mg PO HS PRN PRN Reason: Insomnia Stop: 02/05/19 20:08 Last Admin: 12/10/18 20:30 Dose: 5 mg General: Alert, Oriented x3, No acute distress HEENT: Atraumatic, PERRLA, EOMI Neck: Supple Cardiovascular: Regular rate, Normal S1, Normal S2 Lungs: Clear to auscultation Abdomen: Bowel sounds, Soft Extremities: no Clubbing, no Cyanosis, no Edema Assessment/Plan - Assessment Assessment: psychosis alzheimer's dementia htn elevated ... add clonidine depression hyperlipidemia hypokalemia - Plan [facility]. Nutritional Asmnt/Malnutr-PDOC - Dietary Evaluation Malnutrition Findings (Please click <Entered> for more info): Nutritional Asmnt/Malnutrition Start: 12/10/18 11: 27 Text: Status: Complete Freq: Protocol: Document 12/10/18 11:27 LEILA (Rec: 12/10/18 11:32 LEILA [email or web address]) Nutritional Asmnt/Malnutrition Patient General Information Nutritional Screening Moderate Risk Diagnosis psychosis Pertinent Medical Hx/Surgical Hx HTN, dementia Subjective Information [facility] Per EMR, PO intake 100% . Current Diet Order/ Nutrition Support cardiac, RUFINO Pertinent Medications lipitor, senna, vit B1 Pertinent Labs 12/07 Ca 10.4 Nutritional Hx/Data Height 1.6 m Height (Calculated Centimeters) 160.0 Current Weight (lbs) 51.71 kg Weight (Calculated Kilograms) 51.7 Weight (Calculated Grams) 20071.5 [place] Body Weight 120 Body Mass Index (BMI) 20.2 Weight Status Approriate GI Symptoms GI Symptoms None Last BM 5/2 Difficult in: None Skin Integrity/Comment: dryness, kimberley 20 Current %PO Good (75-100%) Estimated Nutritional Goals BEE in Kcals: Using Current wt Calories/Kcals/Kg 25-30 Kcals Calculated 5998-1351 Protein: Using Current wt Protein g/k Protein Calculated 52 Fluid: ml 1300-1560ml (1ml/kcal) Nutritional Problem No current Nutrition Prob Problem N/A Malnutrition Alert Is there a minimum of two criteria No selected? Query Text:Check all the applicable criteria. A minimum of two criteria are recommended for diagnosis of either severe or non-severe malnutrition. Malnutrition Related to Morbid Obesity Malnutrition related to morbid obesity No Intervention/Recommendation Comments 1. Continue with cardiac RUFINO diet as ordered. 2. Monitor PO intake, wt, labs and skin integrity 3. F/U as low risk in 7 days Expected Outcomes/Goals Expected Outcomes/Goals 1. PO intake to meet at least 75% of nutritional needs. 2. Wt stability, skin to remain intact, labs to approach WNL.
--- NOTE | 2018-12-12 22:14 | Progress Notes ---
DATE: 12/12/2018 Case was discussed with staff of the patient, reviewed records and continues to be on 1:1 as she wants to harm herself. She has been asking the staff, she wants to . She continues to be unpredictable, impulsive, needing redirection. She has been compliant with the medication with no side effects, no sedation, no nausea, no extrapyramidal symptoms. We will continue outpatient group therapy, milieu therapy, adjust medication as needed. [facility]# [id number]
--- NOTE | 2018-12-13 08:07 | General Progress Note ---
Subjective - Review of Systems Service Date: 12/13/18 Subjective: Patient is awake, alert, no acute distress VS T 97.8 P 76 R 20 BP 112/61 Objective - Results Result Diagrams: 12/07/18 17:55 12/07/18 17:55 Recent Labs: Laboratory Last Values WBC 8.8 Th/cmm (4.8-10.8) 12/07/18 17:55 RBC 4.71 Mil/cmm (3.80-5.20) 12/07/18 17:55 Hgb 13.2 gm/dL (12-16) 12/07/18 17:55 Hct 41.4 % (41.0-60) 12/07/18 17:55 MCV 87.8 fl (81-100) 12/07/18 17:55 MCH 28.0 pg (27.0-31.0) 12/07/18 17:55 MCHC Differential 31.9 pg (28.0-36.0) 12/07/18 17:55 RDW 13.2 % (11.5-20.0) 12/07/18 17:55 Plt Count 257 Th/cmm (150-400) 12/07/18 17:55 MPV 8.5 fl 12/07/18 17:55 Neutrophils % 61.2 % (40.0-80.0) 12/07/18 17:55 Lymphocytes % 28.4 % (20.0-50.0) 12/07/18 17:55 Monocytes % 7.2 % (2.0-10.0) 12/07/18 17:55 Eosinophils % 2.6 % (0.0-5.0) 12/07/18 17:55 Basophils % 0.6 % (0.0-2.0) 12/07/18 17:55 Sodium 136 mEq/L (136-145) 12/07/18 17:55 Potassium 4.0 mEq/L (3.5-5.1) 12/07/18 17:55 Chloride 104 mEq/L (98-107) 12/07/18 17:55 Carbon Dioxide 24.4 mEq/L (21.0-31.0) 12/07/18 17:55 Anion Gap 11.6 (7.0-16.0) 12/07/18 17:55 BUN 17 mg/dL (7-25) 12/07/18 17:55 Creatinine 0.7 mg/dL (0.6-1.2) 12/07/18 17:55 Est GFR ( Amer) > 60.0 ml/min (>90) 12/07/18 17:55 Est GFR (Non-Af Amer) > 60.0 ml/min 12/07/18 17:55 BUN/Creatinine Ratio 24.3 12/07/18 17:55 Glucose 102 mg/dL (70-105) 12/07/18 17:55 Calcium 10.4 mg/dL (8.6-10.3) H 12/07/18 17:55 Total Bilirubin 0.4 mg/dL (0.3-1.0) 12/07/18 17:55 AST 18 U/L (13-39) 12/07/18 17:55 ALT 17 U/L (7-52) 12/07/18 17:55 Alkaline Phosphatase 62 U/L (34-104) 12/07/18 17:55 Total Protein 7.3 gm/dL (6.0-8.3) 12/07/18 17:55 Albumin 4.2 gm/dL (3.7-5.3) 12/07/18 17:55 Globulin 3.1 gm/dL 12/07/18 17:55 Albumin/Globulin Ratio 1.4 (1.0-1.8) 12/07/18 17:55 Triglycerides 109 mg/dL (<150) 12/07/18 17:55 Cholesterol 169 mg/dL (<200) 12/07/18 17:55 LDL Cholesterol Direct 107 mg/dL (75-193) 12/07/18 17:55 HDL Cholesterol 44 mg/dL (23-92) 12/07/18 17:55 - Physical Exam Vitals and I&O: Vital Signs Temp 97.8 F 12/13/18 06:08 Pulse 76 12/13/18 06:08 Resp 20 12/13/18 06:08 BP 112/61 12/13/18 06:08 Pulse Ox 98 12/13/18 06:08 Intake & Output 12/12/18 12/13/18 12/13/18 18:59 06:59 18:59 Intake Total 400 120 Balance 400 120 Intake: Oral 400 120 Other: # Voids 4 3 # Bowel Movements 0 Active Medications: Current Medications Aripiprazole (Abilify) 15 mg PO HS [facility]; Protocol Stop: 02/11/19 20:59 Atorvastatin Calcium (Lipitor) 40 mg PO HS [facility] Stop: 02/05/19 20:59 Last Admin: 12/12/18 20:49 Dose: 40 mg Benazepril HCl (Lotensin) 20 mg PO DAILY [facility] Stop: 02/06/19 08:59 Last Admin: 12/12/18 09:30 Dose: 20 mg Donepezil HCl (Aricept) 5 mg PO HS [facility] Stop: 02/09/19 20:59 Last Admin: 12/12/18 20:49 Dose: 5 mg Escitalopram Oxalate (Lexapro) 10 mg PO DAILY [facility]; Protocol Stop: 02/06/19 08:59 Last Admin: 12/12/18 09:31 Dose: 10 mg Lorazepam (Ativan) 0.5 mg PO Q4HR PRN; Protocol PRN Reason: Anxiety Stop: 01/06/19 20:08 Last Admin: 12/12/18 18:08 Dose: 0.5 mg Senna (Senna) 8.6 mg PO DAILY [facility] Stop: 02/06/19 08:59 Last Admin: 12/12/18 09:31 Dose: 8.6 mg Thiamine HCl (Vitamin B1) 100 mg PO DAILY [facility] Stop: 02/06/19 08:59 Last Admin: 12/12/18 09:31 Dose: 100 mg Zolpidem Tartrate (Ambien) 5 mg PO HS PRN PRN Reason: Insomnia Stop: 02/05/19 20:08 Last Admin: 12/12/18 20:49 Dose: 5 mg General: Alert, Oriented x3, No acute distress HEENT: Atraumatic, PERRLA, EOMI Neck: Supple Cardiovascular: Regular rate, Normal S1, Normal S2 Lungs: Clear to auscultation Abdomen: Bowel sounds, Soft Extremities: no Clubbing, no Cyanosis, no Edema Assessment/Plan - Assessment Assessment: psychosis alzheimer's dementia htn elevated ... add clonidine depression hyperlipidemia hypokalemia - Plan Plan: admit to [facility]. continue home meds. Nutritional Asmnt/Malnutr-PDOC - Dietary Evaluation Malnutrition Findings (Please click <Entered> for more info): Nutritional Asmnt/Malnutrition Start: 12/10/18 11: 27 Text: Status: Complete Freq: Protocol: Document 12/10/18 11:27 VIRGENSOPHIE (Rec: 12/10/18 11:32 JOECecilia [email or web address]) Nutritional Asmnt/Malnutrition Patient General Information Nutritional Screening Moderate Risk Diagnosis psychosis Pertinent Medical Hx/Surgical Hx HTN, dementia [facility] Per EMR, PO intake 100% . Current Diet Order/ Nutrition Support cardiac, RUFINO Pertinent Medications lipitor, senna, vit B1 Pertinent Labs 12/07 Ca 10.4 Nutritional Hx/Data Height 1.6 m Height (Calculated Centimeters) 160.0 Current Weight (lbs) 51.71 kg Weight (Calculated Kilograms) 51.7 Weight (Calculated Grams) 40905.5 [place] Body Weight 120 Body Mass Index (BMI) 20.2 Weight Status Approriate GI Symptoms GI Symptoms None Last BM 5/2 Difficult in: None Skin Integrity/Comment: dryness, kimberley 20 Current %PO Good (75-100%) Estimated Nutritional Goals BEE in Kcals: Using Current wt Calories/Kcals/Kg 25-30 Kcals Calculated 6471-7241 Protein: Using Current wt Protein g/k Protein Calculated 52 Fluid: ml 1300-1560ml (1ml/kcal) Nutritional Problem No current Nutrition Prob Problem N/A Malnutrition Alert Is there a minimum of two criteria No selected? Query Text:Check all the applicable criteria. A minimum of two criteria are recommended for diagnosis of either severe or non-severe malnutrition. Malnutrition Related to Morbid Obesity Malnutrition related to morbid obesity No Intervention/Recommendation Comments 1. Continue with cardiac RUFINO diet as ordered. 2. Monitor PO intake, wt, labs and skin integrity 3. F/U as low risk in 7 days Expected Outcomes/Goals Expected Outcomes/Goals 1. PO intake to meet at least 75% of nutritional needs. 2. Wt stability, skin to remain intact, labs to approach WNL.
--- NOTE | 2018-12-14 02:48 | Progress Notes ---
DATE: SUBJECTIVE: Chart was reviewed and the patient interviewed. Also discussed the patient's condition with the staff and reviewed records and labs. The patient continued to be anxious and continued to be severely confused and in a depressed mood. The patient also is still talking to herself. The patient continued to talk about "can you describe to me my bug." The patient also still has difficulty with her mood and with her agitation and irritability. Otherwise, the patient is interacting more with peers and with others. ASSESSMENT: The patient is still paranoid and still needs lots of redirections. TREATMENT PLAN: We will continue to monitor behavior closely. Also we will continue to, work on her restlessness and her ineffective coping and we will continue to follow up closely. [facility]# [id number]
--- NOTE | 2018-12-14 03:10 | Progress Notes ---
DATE: 12/13/2018 SUBJECTIVE: Chart was reviewed and the patient interviewed. Also discussed the patient's condition with the staff and reviewed records and labs. The patient continued to be confused and continued to be extremely agitated. The patient also is asking to describe her dog and she looks like she has visual hallucinations at times and talking about a dog and is still in irritable mood and is still agitated. The patient also is still restless and is still suspicious and paranoid. The patient is also still telling staff "If somebody has a bullet to shoot me" and she still wants to end her life. Otherwise, the patient is compliant with taking her medications with no side effects of medications. ASSESSMENT: The patient is still psychotic and still needs close monitoring. TREATMENT PLAN: Continue to monitor her behavior and her condition closely. Also the patient continued to take Lexapro, Aricept and Abilify. We will increase Abilify to 15 mg every day and we will continue to follow up closely. [facility]# [id number]
--- NOTE | 2018-12-14 08:07 | General Progress Note ---
Subjective - Review of Systems Service Date: 12/14/18 Subjective: Patient is awake, alert, no acute distress VS T 97.9 P 67 R 20 BP 118/62 Objective - Results Result Diagrams: 12/07/18 17:55 12/07/18 17:55 Recent Labs: Laboratory Last Values WBC 8.8 Th/cmm (4.8-10.8) 12/07/18 17:55 RBC 4.71 Mil/cmm (3.80-5.20) 12/07/18 17:55 Hgb 13.2 gm/dL (12-16) 12/07/18 17:55 Hct 41.4 % (41.0-60) 12/07/18 17:55 MCV 87.8 fl (81-100) 12/07/18 17:55 MCH 28.0 pg (27.0-31.0) 12/07/18 17:55 MCHC Differential 31.9 pg (28.0-36.0) 12/07/18 17:55 RDW 13.2 % (11.5-20.0) 12/07/18 17:55 Plt Count 257 Th/cmm (150-400) 12/07/18 17:55 MPV 8.5 fl 12/07/18 17:55 Neutrophils % 61.2 % (40.0-80.0) 12/07/18 17:55 Lymphocytes % 28.4 % (20.0-50.0) 12/07/18 17:55 Monocytes % 7.2 % (2.0-10.0) 12/07/18 17:55 Eosinophils % 2.6 % (0.0-5.0) 12/07/18 17:55 Basophils % 0.6 % (0.0-2.0) 12/07/18 17:55 Sodium 136 mEq/L (136-145) 12/07/18 17:55 Potassium 4.0 mEq/L (3.5-5.1) 12/07/18 17:55 Chloride 104 mEq/L (98-107) 12/07/18 17:55 Carbon Dioxide 24.4 mEq/L (21.0-31.0) 12/07/18 17:55 Anion Gap 11.6 (7.0-16.0) 12/07/18 17:55 BUN 17 mg/dL (7-25) 12/07/18 17:55 Creatinine 0.7 mg/dL (0.6-1.2) 12/07/18 17:55 Est GFR ( Amer) > 60.0 ml/min (>90) 12/07/18 17:55 Est GFR (Non-Af Amer) > 60.0 ml/min 12/07/18 17:55 BUN/Creatinine Ratio 24.3 12/07/18 17:55 Glucose 102 mg/dL (70-105) 12/07/18 17:55 Calcium 10.4 mg/dL (8.6-10.3) H 12/07/18 17:55 Total Bilirubin 0.4 mg/dL (0.3-1.0) 12/07/18 17:55 AST 18 U/L (13-39) 12/07/18 17:55 ALT 17 U/L (7-52) 12/07/18 17:55 Alkaline Phosphatase 62 U/L (34-104) 12/07/18 17:55 Total Protein 7.3 gm/dL (6.0-8.3) 12/07/18 17:55 Albumin 4.2 gm/dL (3.7-5.3) 12/07/18 17:55 Globulin 3.1 gm/dL 12/07/18 17:55 Albumin/Globulin Ratio 1.4 (1.0-1.8) 12/07/18 17:55 Triglycerides 109 mg/dL (<150) 12/07/18 17:55 Cholesterol 169 mg/dL (<200) 12/07/18 17:55 LDL Cholesterol Direct 107 mg/dL (75-193) 12/07/18 17:55 HDL Cholesterol 44 mg/dL (23-92) 12/07/18 17:55 - Physical Exam Vitals and I&O: Vital Signs Temp 97.9 F 12/14/18 06:38 Pulse 67 12/14/18 06:38 Resp 20 12/14/18 06:38 BP 118/62 12/14/18 06:38 Pulse Ox 96 12/14/18 06:38 Intake & Output 12/13/18 12/14/18 12/14/18 18:59 06:59 18:59 Intake Total 950 240 Balance 950 240 Intake: Oral 950 240 Other: # Voids 4 3 # Bowel Movements 1 0 Active Medications: Current Medications Aripiprazole (Abilify) 20 mg PO HS [facility]; Protocol Stop: 02/12/19 20:59 Atorvastatin Calcium (Lipitor) 40 mg PO HS [facility] Stop: 02/05/19 20:59 Last Admin: 12/13/18 20:28 Dose: 40 mg Benazepril HCl (Lotensin) 20 mg PO DAILY [facility] Stop: 02/06/19 08:59 Last Admin: 12/13/18 08:56 Dose: 20 mg Donepezil HCl (Aricept) 5 mg PO HS [facility] Stop: 02/09/19 20:59 Last Admin: 12/13/18 20:28 Dose: 5 mg Escitalopram Oxalate (Lexapro) 10 mg PO DAILY [facility]; Protocol Stop: 02/06/19 08:59 Last Admin: 12/13/18 08:57 Dose: 10 mg Lorazepam (Ativan) 0.5 mg PO Q4HR PRN; Protocol PRN Reason: Anxiety Stop: 01/06/19 20:08 Last Admin: 12/13/18 08:55 Dose: 0.5 mg Senna (Senna) 8.6 mg PO DAILY [facility] Stop: 02/06/19 08:59 Last Admin: 12/13/18 08:57 Dose: 8.6 mg Thiamine HCl (Vitamin B1) 100 mg PO DAILY [facility] Stop: 02/06/19 08:59 Last Admin: 12/13/18 08:57 Dose: 100 mg Zolpidem Tartrate (Ambien) 5 mg PO HS PRN PRN Reason: Insomnia Stop: 02/05/19 20:08 Last Admin: 12/13/18 20:29 Dose: 5 mg General: Alert, Oriented x3, No acute distress HEENT: Atraumatic, PERRLA, EOMI Neck: Supple Cardiovascular: Regular rate, Normal S1, Normal S2 Lungs: Clear to auscultation Abdomen: Bowel sounds, Soft Extremities: no Clubbing, no Cyanosis, no Edema Assessment/Plan - Assessment Assessment: psychosis alzheimer's dementia htn elevated ... add clonidine depression hyperlipidemia hypokalemia - Plan Plan: admit to [facility]. continue home meds. Nutritional Asmnt/Malnutr-PDOC - Dietary Evaluation Malnutrition Findings (Please click <Entered> for more info): Nutritional Asmnt/Malnutrition Start: 12/10/18 11: 27 Text: Status: Complete Freq: Protocol: Document 12/10/18 11:27 VIRGENSOPHIE (Rec: 12/10/18 11:32 LCSOPHIE [email or web address]) Nutritional Asmnt/Malnutrition Patient General Information Nutritional Screening Moderate Risk Diagnosis psychosis Pertinent Medical Hx/Surgical Hx HTN, dementia Subjective Information [facility] Per EMR, PO intake 100% . Current Diet Order/ Nutrition Support cardiac, RUFINO Pertinent Medications lipitor, senna, vit B1 Pertinent Labs 12/07 Ca 10.4 Nutritional Hx/Data Height 1.6 m Height (Calculated Centimeters) 160.0 Current Weight (lbs) 51.71 kg Weight (Calculated Kilograms) 51.7 Weight (Calculated Grams) 59011.5 [place] Body Weight 120 Body Mass Index (BMI) 20.2 Weight Status Approriate GI Symptoms GI Symptoms None Last BM 5/2 Difficult in: None Skin Integrity/Comment: dryness, kimberley 20 Current %PO Good (75-100%) Estimated Nutritional Goals BEE in Kcals: Using Current wt Calories/Kcals/Kg 25-30 Kcals Calculated 6998-1819 Protein: Using Current wt Protein g/k Protein Calculated 52 Fluid: ml 1300-1560ml (1ml/kcal) Nutritional Problem No current Nutrition Prob Problem N/A Malnutrition Alert Is there a minimum of two criteria No selected? Query Text:Check all the applicable criteria. A minimum of two criteria are recommended for diagnosis of either severe or non-severe malnutrition. Malnutrition Related to Morbid Obesity Malnutrition related to morbid obesity No Intervention/Recommendation Comments 1. Continue with cardiac RUFINO diet as ordered. 2. Monitor PO intake, wt, labs and skin integrity 3. F/U as low risk in 7 days Expected Outcomes/Goals Expected Outcomes/Goals 1. PO intake to meet at least 75% of nutritional needs. 2. Wt stability, skin to remain intact, labs to approach WNL.
--- NOTE | 2018-12-15 03:55 | Progress Notes ---
DATE: 12/14/2018 SUBJECTIVE: Chart was reviewed and the patient interviewed. Also discussed the patient's condition with the staff and reviewed records and labs. The patient is still confused. The patient also is preoccupied. The patient also is still repeating saying that "I will be executed today." She is still fearful and she is still anxious, suspicious and paranoid. She also still needs lots of redirections. She also is actively hallucinating. ASSESSMENT: The patient is still depressed and is still psychotic. TREATMENT PLAN: We will continue to monitor her behavior and her condition closely and we will increase Abilify to 20 mg every day and we will continue to follow up. [facility]# [id number]
--- NOTE | 2018-12-15 05:56 | General Progress Note ---
Subjective - Review of Systems Service Date: 12/15/18 Subjective: Patient is awake, alert, no acute distress VS T 97.8 P 70 R 20 BP 130/73 Objective - Results Result Diagrams: 12/07/18 17:55 12/07/18 17:55 Recent Labs: Laboratory Last Values WBC 8.8 Th/cmm (4.8-10.8) 12/07/18 17:55 RBC 4.71 Mil/cmm (3.80-5.20) 12/07/18 17:55 Hgb 13.2 gm/dL (12-16) 12/07/18 17:55 Hct 41.4 % (41.0-60) 12/07/18 17:55 MCV 87.8 fl (81-100) 12/07/18 17:55 MCH 28.0 pg (27.0-31.0) 12/07/18 17:55 MCHC Differential 31.9 pg (28.0-36.0) 12/07/18 17:55 RDW 13.2 % (11.5-20.0) 12/07/18 17:55 Plt Count 257 Th/cmm (150-400) 12/07/18 17:55 MPV 8.5 fl 12/07/18 17:55 Neutrophils % 61.2 % (40.0-80.0) 12/07/18 17:55 Lymphocytes % 28.4 % (20.0-50.0) 12/07/18 17:55 Monocytes % 7.2 % (2.0-10.0) 12/07/18 17:55 Eosinophils % 2.6 % (0.0-5.0) 12/07/18 17:55 Basophils % 0.6 % (0.0-2.0) 12/07/18 17:55 Sodium 136 mEq/L (136-145) 12/07/18 17:55 Potassium 4.0 mEq/L (3.5-5.1) 12/07/18 17:55 Chloride 104 mEq/L (98-107) 12/07/18 17:55 Carbon Dioxide 24.4 mEq/L (21.0-31.0) 12/07/18 17:55 Anion Gap 11.6 (7.0-16.0) 12/07/18 17:55 BUN 17 mg/dL (7-25) 12/07/18 17:55 Creatinine 0.7 mg/dL (0.6-1.2) 12/07/18 17:55 Est GFR ( Amer) > 60.0 ml/min (>90) 12/07/18 17:55 Est GFR (Non-Af Amer) > 60.0 ml/min 12/07/18 17:55 BUN/Creatinine Ratio 24.3 12/07/18 17:55 Glucose 102 mg/dL (70-105) 12/07/18 17:55 Calcium 10.4 mg/dL (8.6-10.3) H 12/07/18 17:55 Total Bilirubin 0.4 mg/dL (0.3-1.0) 12/07/18 17:55 AST 18 U/L (13-39) 12/07/18 17:55 ALT 17 U/L (7-52) 12/07/18 17:55 Alkaline Phosphatase 62 U/L (34-104) 12/07/18 17:55 Total Protein 7.3 gm/dL (6.0-8.3) 12/07/18 17:55 Albumin 4.2 gm/dL (3.7-5.3) 12/07/18 17:55 Globulin 3.1 gm/dL 12/07/18 17:55 Albumin/Globulin Ratio 1.4 (1.0-1.8) 12/07/18 17:55 Triglycerides 109 mg/dL (<150) 12/07/18 17:55 Cholesterol 169 mg/dL (<200) 12/07/18 17:55 LDL Cholesterol Direct 107 mg/dL (75-193) 12/07/18 17:55 HDL Cholesterol 44 mg/dL (23-92) 12/07/18 17:55 - Physical Exam Vitals and I&O: Vital Signs Temp 97.8 F 12/14/18 20:49 Pulse 70 12/14/18 20:49 Resp 20 12/14/18 20:49 BP 130/73 12/14/18 20:49 Pulse Ox 97 12/14/18 20:49 Intake & Output 12/14/18 12/14/18 12/15/18 06:59 18:59 06:59 Intake Total 240 950 240 Balance 240 950 240 Intake: Oral 240 950 240 Other: # Voids 3 4 1 # Bowel Movements 0 1 Active Medications: Current Medications Aripiprazole (Abilify) 20 mg PO HS [facility]; Protocol Stop: 02/12/19 20:59 Last Admin: 12/14/18 21:37 Dose: 20 mg Atorvastatin Calcium (Lipitor) 40 mg PO HS [facility] Stop: 02/05/19 20:59 Last Admin: 12/14/18 21:37 Dose: 40 mg Benazepril HCl (Lotensin) 20 mg PO DAILY [facility] Stop: 02/06/19 08:59 Last Admin: 12/14/18 09:13 Dose: 20 mg Donepezil HCl (Aricept) 5 mg PO HS [facility] Stop: 02/09/19 20:59 Last Admin: 12/14/18 21:37 Dose: 5 mg Escitalopram Oxalate (Lexapro) 10 mg PO DAILY [facility]; Protocol Stop: 02/06/19 08:59 Last Admin: 12/14/18 09:14 Dose: 10 mg Lorazepam (Ativan) 0.5 mg PO Q4HR PRN; Protocol PRN Reason: Anxiety Stop: 01/06/19 20:08 Last Admin: 12/14/18 09:14 Dose: 0.5 mg Senna (Senna) 8.6 mg PO DAILY [facility] Stop: 02/06/19 08:59 Last Admin: 12/14/18 09:13 Dose: 8.6 mg Thiamine HCl (Vitamin B1) 100 mg PO DAILY [facility] Stop: 02/06/19 08:59 Last Admin: 12/14/18 09:13 Dose: 100 mg Zolpidem Tartrate (Ambien) 5 mg PO HS PRN PRN Reason: Insomnia Stop: 02/05/19 20:08 Last Admin: 12/14/18 21:37 Dose: 5 mg General: Alert, Oriented x3, No acute distress HEENT: Atraumatic, PERRLA, EOMI Neck: Supple Cardiovascular: Regular rate, Normal S1, Normal S2 Lungs: Clear to auscultation Abdomen: Bowel sounds, Soft Extremities: no Clubbing, no Cyanosis, no Edema Assessment/Plan - Assessment Assessment: psychosis alzheimer's dementia htn elevated ... add clonidine depression hyperlipidemia hypokalemia - [facility]. Nutritional Asmnt/Malnutr-PDOC - Dietary Evaluation Malnutrition Findings (Please click <Entered> for more info): Nutritional Asmnt/Malnutrition Start: 12/10/18 11: 27 Text: Status: Complete Freq: Protocol: Document 12/10/18 11:27 LEILA (Rec: 12/10/18 11:32 VIRGENSOPHIE [email or web address]) Nutritional Asmnt/Malnutrition Patient General Information Nutritional Screening Moderate Risk Diagnosis psychosis Pertinent Medical Hx/Surgical Hx HTN, dementia Subjective Information [facility] Per EMR, PO intake 100% . Current Diet Order/ Nutrition Support cardiac, RUFINO Pertinent Medications lipitor, senna, vit B1 Pertinent Labs 12/07 Ca 10.4 Nutritional Hx/Data Height 1.6 m Height (Calculated Centimeters) 160.0 Current Weight (lbs) 51.71 kg Weight (Calculated Kilograms) 51.7 Weight (Calculated Grams) 82122.5 [place] Body Weight 120 Body Mass Index (BMI) 20.2 Weight Status Approriate GI Symptoms GI Symptoms None Last BM 5/2 Difficult in: None Skin Integrity/Comment: dryness, kimberley 20 Current %PO Good (75-100%) Estimated Nutritional Goals BEE in Kcals: Using Current wt Calories/Kcals/Kg 25-30 Kcals Calculated 0839-6956 Protein: Using Current wt Protein g/k Protein Calculated 52 Fluid: ml 1300-1560ml (1ml/kcal) Nutritional Problem No current Nutrition Prob Problem N/A Malnutrition Alert Is there a minimum of two criteria No selected? Query Text:Check all the applicable criteria. A minimum of two criteria are recommended for diagnosis of either severe or non-severe malnutrition. Malnutrition Related to Morbid Obesity Malnutrition related to morbid obesity No Intervention/Recommendation Comments 1. Continue with cardiac RUFINO diet as ordered. 2. Monitor PO intake, wt, labs and skin integrity 3. F/U as low risk in 7 days Expected Outcomes/Goals Expected Outcomes/Goals 1. PO intake to meet at least 75% of nutritional needs. 2. Wt stability, skin to remain intact, labs to approach WNL.
--- NOTE | 2018-12-16 06:01 | General Progress Note ---
Subjective - Review of Systems Service Date: 12/16/18 Subjective: Patient is awake, alert, no acute distress VS T 97.5 P 88 R 18 BP 128/75 Objective - Results Result Diagrams: 12/07/18 17:55 12/07/18 17:55 Recent Labs: Laboratory Last Values WBC 8.8 Th/cmm (4.8-10.8) 12/07/18 17:55 RBC 4.71 Mil/cmm (3.80-5.20) 12/07/18 17:55 Hgb 13.2 gm/dL (12-16) 12/07/18 17:55 Hct 41.4 % (41.0-60) 12/07/18 17:55 MCV 87.8 fl (81-100) 12/07/18 17:55 MCH 28.0 pg (27.0-31.0) 12/07/18 17:55 MCHC Differential 31.9 pg (28.0-36.0) 12/07/18 17:55 RDW 13.2 % (11.5-20.0) 12/07/18 17:55 Plt Count 257 Th/cmm (150-400) 12/07/18 17:55 MPV 8.5 fl 12/07/18 17:55 Neutrophils % 61.2 % (40.0-80.0) 12/07/18 17:55 Lymphocytes % 28.4 % (20.0-50.0) 12/07/18 17:55 Monocytes % 7.2 % (2.0-10.0) 12/07/18 17:55 Eosinophils % 2.6 % (0.0-5.0) 12/07/18 17:55 Basophils % 0.6 % (0.0-2.0) 12/07/18 17:55 Sodium 136 mEq/L (136-145) 12/07/18 17:55 Potassium 4.0 mEq/L (3.5-5.1) 12/07/18 17:55 Chloride 104 mEq/L (98-107) 12/07/18 17:55 Carbon Dioxide 24.4 mEq/L (21.0-31.0) 12/07/18 17:55 Anion Gap 11.6 (7.0-16.0) 12/07/18 17:55 BUN 17 mg/dL (7-25) 12/07/18 17:55 Creatinine 0.7 mg/dL (0.6-1.2) 12/07/18 17:55 Est GFR ( Amer) > 60.0 ml/min (>90) 12/07/18 17:55 Est GFR (Non-Af Amer) > 60.0 ml/min 12/07/18 17:55 BUN/Creatinine Ratio 24.3 12/07/18 17:55 Glucose 102 mg/dL (70-105) 12/07/18 17:55 Calcium 10.4 mg/dL (8.6-10.3) H 12/07/18 17:55 Total Bilirubin 0.4 mg/dL (0.3-1.0) 12/07/18 17:55 AST 18 U/L (13-39) 12/07/18 17:55 ALT 17 U/L (7-52) 12/07/18 17:55 Alkaline Phosphatase 62 U/L (34-104) 12/07/18 17:55 Total Protein 7.3 gm/dL (6.0-8.3) 12/07/18 17:55 Albumin 4.2 gm/dL (3.7-5.3) 12/07/18 17:55 Globulin 3.1 gm/dL 12/07/18 17:55 Albumin/Globulin Ratio 1.4 (1.0-1.8) 12/07/18 17:55 Triglycerides 109 mg/dL (<150) 12/07/18 17:55 Cholesterol 169 mg/dL (<200) 12/07/18 17:55 LDL Cholesterol Direct 107 mg/dL (75-193) 12/07/18 17:55 HDL Cholesterol 44 mg/dL (23-92) 12/07/18 17:55 - Physical Exam Vitals and I&O: Vital Signs Temp 97.5 F 12/15/18 14:00 Pulse 88 12/15/18 14:00 Resp 19 12/15/18 20:00 BP 128/75 12/15/18 14:00 Pulse Ox 95 12/15/18 14:00 Intake & Output 12/15/18 12/15/18 12/16/18 06:59 18:59 06:59 Intake Total 400 800 Balance 400 800 Intake: Oral 400 800 Other: # Voids 1 4 # Bowel Movements 0 1 Active Medications: Current Medications Aripiprazole (Abilify) 20 mg PO HS [facility]; Protocol Stop: 02/12/19 20:59 Last Admin: 12/15/18 21:17 Dose: 20 mg Atorvastatin Calcium (Lipitor) 40 mg PO HS [facility] Stop: 02/05/19 20:59 Last Admin: 12/15/18 21:17 Dose: 40 mg Benazepril HCl (Lotensin) 20 mg PO DAILY [facility] Stop: 02/06/19 08:59 Last Admin: 12/15/18 08:23 Dose: 20 mg Donepezil HCl (Aricept) 5 mg PO HS [facility] Stop: 02/09/19 20:59 Last Admin: 12/15/18 21:18 Dose: 5 mg Escitalopram Oxalate (Lexapro) 10 mg PO DAILY [facility]; Protocol Stop: 02/06/19 08:59 Last Admin: 12/15/18 08:25 Dose: 10 mg Lorazepam (Ativan) 0.5 mg PO Q4HR PRN; Protocol PRN Reason: Anxiety Stop: 02/13/19 08:08 Last Admin: 12/15/18 17:29 Dose: 0.5 mg Senna (Senna) 8.6 mg PO DAILY [facility] Stop: 02/06/19 08:59 Last Admin: 12/15/18 08:25 Dose: 8.6 mg Thiamine HCl (Vitamin B1) 100 mg PO DAILY [facility] Stop: 02/06/19 08:59 Last Admin: 12/15/18 08:24 Dose: 100 mg Zolpidem Tartrate (Ambien) 5 mg PO HS PRN PRN Reason: Insomnia Stop: 02/13/19 08:11 Last Admin: 12/15/18 21:18 Dose: 5 mg General: Alert, Oriented x3, No acute distress HEENT: Atraumatic, PERRLA, EOMI Neck: Supple Cardiovascular: Regular rate, Normal S1, Normal S2 Lungs: Clear to auscultation Abdomen: Bowel sounds, Soft Extremities: no Clubbing, no Cyanosis, no Edema Assessment/Plan - Assessment Assessment: psychosis alzheimer's dementia htn stable ... clonidine PRN depression hyperlipidemia hypokalemia - [facility]. Nutritional Asmnt/Malnutr-PDOC - Dietary Evaluation Malnutrition Findings (Please click <Entered> for more info): Nutritional Asmnt/Malnutrition Start: 12/10/18 11: 27 Text: Status: Complete Freq: Protocol: Document 12/10/18 11:27 LEILA (Rec: 12/10/18 11:32 LEILA [email or web address]) Nutritional Asmnt/Malnutrition Patient General Information Nutritional Screening Moderate Risk Diagnosis psychosis Pertinent Medical Hx/Surgical Hx HTN, dementia Subjective Information [facility] Per EMR, PO intake 100% . Current Diet Order/ Nutrition Support cardiac, RUFINO Pertinent Medications lipitor, senna, vit B1 Pertinent Labs 12/07 Ca 10.4 Nutritional Hx/Data Height 1.6 m Height (Calculated Centimeters) 160.0 Current Weight (lbs) 51.71 kg Weight (Calculated Kilograms) 51.7 Weight (Calculated Grams) 17870.5 [place] Body Weight 120 Body Mass Index (BMI) 20.2 Weight Status Approriate GI Symptoms GI Symptoms None Last BM 5/2 Difficult in: None Skin Integrity/Comment: dryness, kimberley 20 Current %PO Good (75-100%) Estimated Nutritional Goals BEE in Kcals: Using Current wt Calories/Kcals/Kg 25-30 Kcals Calculated 5514-7457 Protein: Using Current wt Protein g/k Protein Calculated 52 Fluid: ml 1300-1560ml (1ml/kcal) Nutritional Problem No current Nutrition Prob Problem N/A Malnutrition Alert Is there a minimum of two criteria No selected? Query Text:Check all the applicable criteria. A minimum of two criteria are recommended for diagnosis of either severe or non-severe malnutrition. Malnutrition Related to Morbid Obesity Malnutrition related to morbid obesity No Intervention/Recommendation Comments 1. Continue with cardiac RUFINO diet as ordered. 2. Monitor PO intake, wt, labs and skin integrity 3. F/U as low risk in 7 days Expected Outcomes/Goals Expected Outcomes/Goals 1. PO intake to meet at least 75% of nutritional needs. 2. Wt stability, skin to remain intact, labs to approach WNL.
--- NOTE | 2018-12-16 09:27 | Progress Notes ---
DATE: 12/15/2018 SUBJECTIVE: Chart reviewed and the patient interviewed. Also discussed the patient's condition with the staff and reviewed records and labs. The patient seems to be slightly less paranoid and less talkative and the patient is not talking about this today like she was since her admission. The patient also is still crying but not as much. The patient also is still paranoid and asking the nurses "is it a safe place here." Otherwise, the patient denies any intention to harm herself or others. She is also compliant with taking her medications. ASSESSMENT: The patient is still psychotic, but showing some improvement. TREATMENT PLAN: Continue monitoring her behavior closely. Also, continue Abilify in a dose of 20 mg at bedtime and Lexapro 10 mg at bedtime and continue to follow up closely. [facility]# [id number]
--- NOTE | 2018-12-16 21:06 | Progress Notes ---
DATE: 12/16/2018 SUBJECTIVE: Chart was reviewed and the patient interviewed. Also discussed the patient's condition with the staff and reviewed records and labs. The patient continued to be confused and she is still suspicious and paranoid. The patient also is still talking about this, but seems to be less than before. The patient was asking me "what is going on." She was telling me that people losing jobs and she was not able to elaborate or to carry on coherent conversation because of her confusion. Otherwise, the patient has continued to comply with taking her medications with no side effects of medications. ASSESSMENT: The patient is still psychotic. TREATMENT PLAN: Continue to monitor her behavior and her condition closely. Also, continue adjusting psychotropic medications and work on behavioral modification. JOB# [id number]
--- NOTE | 2018-12-17 05:35 | General Progress Note ---
Subjective - Review of Systems Service Date: 12/17/18 Subjective: Patient is awake, alert, no acute distress VS T 97.1 P 76 R 19 BP 128/62 Objective - Results Result Diagrams: 12/07/18 17:55 12/07/18 17:55 Recent Labs: Laboratory Last Values WBC 8.8 Th/cmm (4.8-10.8) 12/07/18 17:55 RBC 4.71 Mil/cmm (3.80-5.20) 12/07/18 17:55 Hgb 13.2 gm/dL (12-16) 12/07/18 17:55 Hct 41.4 % (41.0-60) 12/07/18 17:55 MCV 87.8 fl (81-100) 12/07/18 17:55 MCH 28.0 pg (27.0-31.0) 12/07/18 17:55 MCHC Differential 31.9 pg (28.0-36.0) 12/07/18 17:55 RDW 13.2 % (11.5-20.0) 12/07/18 17:55 Plt Count 257 Th/cmm (150-400) 12/07/18 17:55 MPV 8.5 fl 12/07/18 17:55 Neutrophils % 61.2 % (40.0-80.0) 12/07/18 17:55 Lymphocytes % 28.4 % (20.0-50.0) 12/07/18 17:55 Monocytes % 7.2 % (2.0-10.0) 12/07/18 17:55 Eosinophils % 2.6 % (0.0-5.0) 12/07/18 17:55 Basophils % 0.6 % (0.0-2.0) 12/07/18 17:55 Sodium 136 mEq/L (136-145) 12/07/18 17:55 Potassium 4.0 mEq/L (3.5-5.1) 12/07/18 17:55 Chloride 104 mEq/L (98-107) 12/07/18 17:55 Carbon Dioxide 24.4 mEq/L (21.0-31.0) 12/07/18 17:55 Anion Gap 11.6 (7.0-16.0) 12/07/18 17:55 BUN 17 mg/dL (7-25) 12/07/18 17:55 Creatinine 0.7 mg/dL (0.6-1.2) 12/07/18 17:55 Est GFR ( Amer) > 60.0 ml/min (>90) 12/07/18 17:55 Est GFR (Non-Af Amer) > 60.0 ml/min 12/07/18 17:55 BUN/Creatinine Ratio 24.3 12/07/18 17:55 Glucose 102 mg/dL (70-105) 12/07/18 17:55 Calcium 10.4 mg/dL (8.6-10.3) H 12/07/18 17:55 Total Bilirubin 0.4 mg/dL (0.3-1.0) 12/07/18 17:55 AST 18 U/L (13-39) 12/07/18 17:55 ALT 17 U/L (7-52) 12/07/18 17:55 Alkaline Phosphatase 62 U/L (34-104) 12/07/18 17:55 Total Protein 7.3 gm/dL (6.0-8.3) 12/07/18 17:55 Albumin 4.2 gm/dL (3.7-5.3) 12/07/18 17:55 Globulin 3.1 gm/dL 12/07/18 17:55 Albumin/Globulin Ratio 1.4 (1.0-1.8) 12/07/18 17:55 Triglycerides 109 mg/dL (<150) 12/07/18 17:55 Cholesterol 169 mg/dL (<200) 12/07/18 17:55 LDL Cholesterol Direct 107 mg/dL (75-193) 12/07/18 17:55 HDL Cholesterol 44 mg/dL (23-92) 12/07/18 17:55 - Physical Exam Vitals and I&O: Vital Signs Temp 97.1 F 12/16/18 21:49 Pulse 76 12/16/18 21:49 Resp 19 12/16/18 21:49 BP 128/62 12/16/18 21:49 Pulse Ox 96 12/16/18 21:49 Intake & Output 12/16/18 12/16/18 12/17/18 06:59 18:59 06:59 Intake Total 180 Balance 180 Intake: Oral 180 Other: # Voids 2 2 # Bowel Movements 0 0 Active Medications: Current Medications Aripiprazole (Abilify) 20 mg PO HS [facility]; Protocol Stop: 02/12/19 20:59 Last Admin: 12/16/18 20:42 Dose: 20 mg Atorvastatin Calcium (Lipitor) 40 mg PO HS [facility] Stop: 02/05/19 20:59 Last Admin: 12/16/18 20:42 Dose: 40 mg Benazepril HCl (Lotensin) 20 mg PO DAILY [facility] Stop: 02/06/19 08:59 Last Admin: 12/16/18 08:10 Dose: 20 mg Donepezil HCl (Aricept) 5 mg PO HS [facility] Stop: 02/09/19 20:59 Last Admin: 12/16/18 20:43 Dose: 5 mg Escitalopram Oxalate (Lexapro) 10 mg PO DAILY [facility]; Protocol Stop: 02/06/19 08:59 Last Admin: 12/16/18 08:10 Dose: 10 mg Lorazepam (Ativan) 0.5 mg PO Q4HR PRN; Protocol PRN Reason: Anxiety Stop: 02/13/19 08:08 Last Admin: 12/16/18 17:20 Dose: 0.5 mg Senna (Senna) 8.6 mg PO DAILY [facility] Stop: 02/06/19 08:59 Last Admin: 12/16/18 08:13 Dose: 8.6 mg Thiamine HCl (Vitamin B1) 100 mg PO DAILY [facility] Stop: 02/06/19 08:59 Last Admin: 12/16/18 08:10 Dose: 100 mg Zolpidem Tartrate (Ambien) 5 mg PO HS PRN PRN Reason: Insomnia Stop: 02/13/19 08:11 Last Admin: 12/16/18 20:44 Dose: 5 mg General: Alert, Oriented x3, No acute distress HEENT: Atraumatic, PERRLA, EOMI Neck: Supple Cardiovascular: Regular rate, Normal S1, Normal S2 Lungs: Clear to auscultation Abdomen: Bowel sounds, Soft Extremities: no Clubbing, no Cyanosis, no Edema Assessment/Plan - Assessment Assessment: psychosis alzheimer's dementia htn stable ... clonidine PRN depression hyperlipidemia hypokalemia - [facility]. Nutritional Asmnt/Malnutr-PDOC - Dietary Evaluation Malnutrition Findings (Please click <Entered> for more info): Nutritional Asmnt/Malnutrition Start: 12/10/18 11: 27 Text: Status: Complete Freq: Protocol: Document 12/10/18 11:27 VIRGENSOPHIE (Rec: 12/10/18 11:32 VIRGENSOPHIE [email or web address]) Nutritional Asmnt/Malnutrition Patient General Information Nutritional Screening Moderate Risk Diagnosis psychosis Pertinent Medical Hx/Surgical Hx HTN, dementia Subjective Information [facility] Per EMR, PO intake 100% . Current Diet Order/ Nutrition Support cardiac, RUFINO Pertinent Medications lipitor, senna, vit B1 Pertinent Labs 12/07 Ca 10.4 Nutritional Hx/Data Height 1.6 m Height (Calculated Centimeters) 160.0 Current Weight (lbs) 51.71 kg Weight (Calculated Kilograms) 51.7 Weight (Calculated Grams) 90136.5 [place] Body Weight 120 Body Mass Index (BMI) 20.2 Weight Status Approriate GI Symptoms GI Symptoms None Last BM 5/2 Difficult in: None Skin Integrity/Comment: dryness, kimberley 20 Current %PO Good (75-100%) Estimated Nutritional Goals BEE in Kcals: Using Current wt Calories/Kcals/Kg 25-30 Kcals Calculated 6729-1035 Protein: Using Current wt Protein g/k Protein Calculated 52 Fluid: ml 1300-1560ml (1ml/kcal) Nutritional Problem No current Nutrition Prob Problem N/A Malnutrition Alert Is there a minimum of two criteria No selected? Query Text:Check all the applicable criteria. A minimum of two criteria are recommended for diagnosis of either severe or non-severe malnutrition. Malnutrition Related to Morbid Obesity Malnutrition related to morbid obesity No Intervention/Recommendation Comments 1. Continue with cardiac RUFINO diet as ordered. 2. Monitor PO intake, wt, labs and skin integrity 3. F/U as low risk in 7 days Expected Outcomes/Goals Expected Outcomes/Goals 1. PO intake to meet at least 75% of nutritional needs. 2. Wt stability, skin to remain intact, labs to approach WNL.
--- NOTE | 2018-12-17 22:30 | Progress Notes ---
DATE: SUBJECTIVE: Chart reviewed and the patient interviewed. Also discussed the patient's condition with the staff and reviewed records and labs. The patient continued to be suspicious and paranoid. The patient also is still restless and she is still easily agitated. She also is still talking to herself. She also is still resisting care and at times, the patient seems to be confused, not able to answer questions coherently. The patient also is still talking about , but not as much. Also, personal hygiene is still poor. On the other hand, the patient continued to comply with taking her medications and Abilify was increased to 20 mg at bedtime. The patient also continued to take Lexapro in a dose of 10 mg every day. Also, we will increase Aricept to 10 mg every day and continue to monitor her behavior and her condition closely. JOB# [id number]
--- NOTE | 2018-12-18 05:41 | General Progress Note ---
Subjective - Review of Systems Service Date: 12/18/18 Subjective: Patient is awake, alert, no acute distress VS T 97.1 P 87 R 20 BP 123/69 Objective - Results Result Diagrams: 12/07/18 17:55 12/07/18 17:55 Recent Labs: Laboratory Last Values WBC 8.8 Th/cmm (4.8-10.8) 12/07/18 17:55 RBC 4.71 Mil/cmm (3.80-5.20) 12/07/18 17:55 Hgb 13.2 gm/dL (12-16) 12/07/18 17:55 Hct 41.4 % (41.0-60) 12/07/18 17:55 MCV 87.8 fl (81-100) 12/07/18 17:55 MCH 28.0 pg (27.0-31.0) 12/07/18 17:55 MCHC Differential 31.9 pg (28.0-36.0) 12/07/18 17:55 RDW 13.2 % (11.5-20.0) 12/07/18 17:55 Plt Count 257 Th/cmm (150-400) 12/07/18 17:55 MPV 8.5 fl 12/07/18 17:55 Neutrophils % 61.2 % (40.0-80.0) 12/07/18 17:55 Lymphocytes % 28.4 % (20.0-50.0) 12/07/18 17:55 Monocytes % 7.2 % (2.0-10.0) 12/07/18 17:55 Eosinophils % 2.6 % (0.0-5.0) 12/07/18 17:55 Basophils % 0.6 % (0.0-2.0) 12/07/18 17:55 Sodium 136 mEq/L (136-145) 12/07/18 17:55 Potassium 4.0 mEq/L (3.5-5.1) 12/07/18 17:55 Chloride 104 mEq/L (98-107) 12/07/18 17:55 Carbon Dioxide 24.4 mEq/L (21.0-31.0) 12/07/18 17:55 Anion Gap 11.6 (7.0-16.0) 12/07/18 17:55 BUN 17 mg/dL (7-25) 12/07/18 17:55 Creatinine 0.7 mg/dL (0.6-1.2) 12/07/18 17:55 Est GFR ( Amer) > 60.0 ml/min (>90) 12/07/18 17:55 Est GFR (Non-Af Amer) > 60.0 ml/min 12/07/18 17:55 BUN/Creatinine Ratio 24.3 12/07/18 17:55 Glucose 102 mg/dL (70-105) 12/07/18 17:55 Calcium 10.4 mg/dL (8.6-10.3) H 12/07/18 17:55 Total Bilirubin 0.4 mg/dL (0.3-1.0) 12/07/18 17:55 AST 18 U/L (13-39) 12/07/18 17:55 ALT 17 U/L (7-52) 12/07/18 17:55 Alkaline Phosphatase 62 U/L (34-104) 12/07/18 17:55 Total Protein 7.3 gm/dL (6.0-8.3) 12/07/18 17:55 Albumin 4.2 gm/dL (3.7-5.3) 12/07/18 17:55 Globulin 3.1 gm/dL 12/07/18 17:55 Albumin/Globulin Ratio 1.4 (1.0-1.8) 12/07/18 17:55 Triglycerides 109 mg/dL (<150) 12/07/18 17:55 Cholesterol 169 mg/dL (<200) 12/07/18 17:55 LDL Cholesterol Direct 107 mg/dL (75-193) 12/07/18 17:55 HDL Cholesterol 44 mg/dL (23-92) 12/07/18 17:55 - Physical Exam Vitals and I&O: Vital Signs Temp 97.1 F 12/17/18 20:00 Pulse 87 12/17/18 20:00 Resp 20 12/17/18 20:00 BP 123/69 12/17/18 20:00 Pulse Ox 98 12/17/18 20:00 Intake & Output 12/17/18 12/17/18 12/18/18 06:59 18:59 06:59 Intake Total 240 1600 Balance 240 1600 Intake: Oral 240 1600 Other: # Voids 2 3 # Bowel Movements 0 0 Active Medications: Current Medications Aripiprazole (Abilify) 20 [facility] PO [facility]; Protocol Stop: 02/12/19 20:59 Last Admin: 12/17/18 21:12 Dose: 20 mg Atorvastatin Calcium (Lipitor) 40 mg PO HS [facility] Stop: 02/05/19 20:59 Last Admin: 12/17/18 21:12 Dose: 40 mg Benazepril HCl (Lotensin) 20 mg PO DAILY [facility] Stop: 02/06/19 08:59 Last Admin: 12/17/18 08:33 Dose: 20 mg Donepezil HCl (Aricept) 10 mg PO HS [facility] Stop: 02/15/19 20:59 Last Admin: 12/17/18 21:12 Dose: 10 mg Escitalopram Oxalate (Lexapro) 10 mg PO DAILY [facility]; Protocol Stop: 02/06/19 08:59 Last Admin: 12/17/18 08:33 Dose: 10 mg Lorazepam (Ativan) 0.5 mg PO Q4HR PRN; Protocol PRN Reason: Anxiety Stop: 02/13/19 08:08 Last Admin: 12/17/18 11:16 Dose: 0.5 mg Senna (Senna) 8.6 mg PO DAILY [facility] Stop: 02/06/19 08:59 Last Admin: 12/17/18 08:33 Dose: 8.6 mg Thiamine HCl (Vitamin B1) 100 mg PO DAILY [facility] Stop: 02/06/19 08:59 Last Admin: 12/17/18 08:33 Dose: 100 mg Zolpidem Tartrate (Ambien) 5 mg PO HS PRN PRN Reason: Insomnia Stop: 02/13/19 08:11 Last Admin: 12/17/18 21:12 Dose: 5 mg General: Alert, Oriented x3, No acute distress HEENT: Atraumatic, PERRLA, EOMI Neck: Supple Cardiovascular: Regular rate, Normal S1, Normal S2 Lungs: Clear to auscultation Abdomen: Bowel sounds, Soft Extremities: no Clubbing, no Cyanosis, no Edema Assessment/Plan - Assessment Assessment: psychosis alzheimer's dementia htn stable ... clonidine PRN depression hyperlipidemia hypokalemia - Plan [facility] continue home meds. Nutritional Asmnt/Malnutr-PDOC - Dietary Evaluation Malnutrition Findings (Please click <Entered> for more info): Nutritional Asmnt/Malnutrition Start: 12/10/18 11: 27 Text: Status: Complete Freq: Protocol: Document 12/10/18 11:27 LEILA (Rec: 12/10/18 11:32 LEILA [email or web address]) Nutritional Asmnt/Malnutrition Patient General Information Nutritional Screening Moderate Risk Diagnosis psychosis Pertinent Medical Hx/Surgical Hx HTN, dementia [facility]ive [facility] Per EMR, PO intake 100% . Current Diet Order/ Nutrition Support cardiac, RUFINO Pertinent Medications lipitor, senna, vit B1 Pertinent Labs 12/07 Ca 10.4 Nutritional Hx/Data Height 1.6 m Height (Calculated Centimeters) 160.0 Current Weight (lbs) 51.71 kg Weight (Calculated Kilograms) 51.7 Weight (Calculated Grams) 07905.5 [place] Body Weight 120 Body Mass Index (BMI) 20.2 Weight Status Approriate GI Symptoms GI Symptoms None Last BM 5/2 Difficult in: None Skin Integrity/Comment: dryness, kimberley 20 Current %PO Good (75-100%) Estimated Nutritional Goals BEE in Kcals: Using Current wt Calories/Kcals/Kg 25-30 Kcals Calculated 4534-4030 Protein: Using Current wt Protein g/k Protein Calculated 52 Fluid: ml 1300-1560ml (1ml/kcal) Nutritional Problem No current Nutrition Prob Problem N/A Malnutrition Alert Is there a minimum of two criteria No selected? Query Text:Check all the applicable criteria. A minimum of two criteria are recommended for diagnosis of either severe or non-severe malnutrition. Malnutrition Related to Morbid Obesity Malnutrition related to morbid obesity No Intervention/Recommendation Comments 1. Continue with cardiac RUFINO diet as ordered. 2. Monitor PO intake, wt, labs and skin integrity 3. F/U as low risk in 7 days Expected Outcomes/Goals Expected Outcomes/Goals 1. PO intake to meet at least 75% of nutritional needs. 2. Wt stability, skin to remain intact, labs to approach WNL.
--- NOTE | 2018-12-19 01:44 | Progress Notes ---
DATE: 12/18/2018 SUBJECTIVE: Chart was reviewed and the patient interviewed. Also discussed the patient's condition with the staff and reviewed records and labs. The patient continued to be confused and she is still wandering into people's rooms. The patient also is still anxious and laughing inappropriately. The patient also thinks that the people are after her and the people are talking to her. The patient also still talking to herself. ASSESSMENT: The patient is still psychotic, but less than before. TREATMENT PLAN: We will continue monitoring her behavior and her condition closely. Also, continue adjusting psychotropic medications and work on behavioral modification. [facility]# [id number]
--- NOTE | 2018-12-19 09:07 | General Progress Note ---
Subjective - Review of Systems Service Date: 12/19/18 Subjective: Patient is awake, alert, no acute distress VS T 97.8 P 71 R 20 BP 117/57 Objective - Results Result Diagrams: 12/07/18 17:55 12/07/18 17:55 Recent Labs: Laboratory Last Values WBC 8.8 Th/cmm (4.8-10.8) 12/07/18 17:55 RBC 4.71 Mil/cmm (3.80-5.20) 12/07/18 17:55 Hgb 13.2 gm/dL (12-16) 12/07/18 17:55 Hct 41.4 % (41.0-60) 12/07/18 17:55 MCV 87.8 fl (81-100) 12/07/18 17:55 MCH 28.0 pg (27.0-31.0) 12/07/18 17:55 MCHC Differential 31.9 pg (28.0-36.0) 12/07/18 17:55 RDW 13.2 % (11.5-20.0) 12/07/18 17:55 Plt Count 257 Th/cmm (150-400) 12/07/18 17:55 MPV 8.5 fl 12/07/18 17:55 Neutrophils % 61.2 % (40.0-80.0) 12/07/18 17:55 Lymphocytes % 28.4 % (20.0-50.0) 12/07/18 17:55 Monocytes % 7.2 % (2.0-10.0) 12/07/18 17:55 Eosinophils % 2.6 % (0.0-5.0) 12/07/18 17:55 Basophils % 0.6 % (0.0-2.0) 12/07/18 17:55 Sodium 136 mEq/L (136-145) 12/07/18 17:55 Potassium 4.0 mEq/L (3.5-5.1) 12/07/18 17:55 Chloride 104 mEq/L (98-107) 12/07/18 17:55 Carbon Dioxide 24.4 mEq/L (21.0-31.0) 12/07/18 17:55 Anion Gap 11.6 (7.0-16.0) 12/07/18 17:55 BUN 17 mg/dL (7-25) 12/07/18 17:55 Creatinine 0.7 mg/dL (0.6-1.2) 12/07/18 17:55 Est GFR ( Amer) > 60.0 ml/min (>90) 12/07/18 17:55 Est GFR (Non-Af Amer) > 60.0 ml/min 12/07/18 17:55 BUN/Creatinine Ratio 24.3 12/07/18 17:55 Glucose 102 mg/dL (70-105) 12/07/18 17:55 Calcium 10.4 mg/dL (8.6-10.3) H 12/07/18 17:55 Total Bilirubin 0.4 mg/dL (0.3-1.0) 12/07/18 17:55 AST 18 U/L (13-39) 12/07/18 17:55 ALT 17 U/L (7-52) 12/07/18 17:55 Alkaline Phosphatase 62 U/L (34-104) 12/07/18 17:55 Total Protein 7.3 gm/dL (6.0-8.3) 12/07/18 17:55 Albumin 4.2 gm/dL (3.7-5.3) 12/07/18 17:55 Globulin 3.1 gm/dL 12/07/18 17:55 Albumin/Globulin Ratio 1.4 (1.0-1.8) 12/07/18 17:55 Triglycerides 109 mg/dL (<150) 12/07/18 17:55 Cholesterol 169 mg/dL (<200) 12/07/18 17:55 LDL Cholesterol Direct 107 mg/dL (75-193) 12/07/18 17:55 HDL Cholesterol 44 mg/dL (23-92) 12/07/18 17:55 - Physical Exam Vitals and I&O: Vital Signs Temp 97.8 F 12/19/18 06:13 Pulse 71 12/19/18 08:38 Resp 20 12/19/18 06:13 BP 117/57 12/19/18 08:38 Pulse Ox 97 12/19/18 06:13 Intake & Output 12/18/18 12/19/18 12/19/18 18:59 06:59 18:59 Intake Total 950 720 Balance 950 720 Intake: Oral 950 720 Other: # Voids 4 2 # Bowel Movements 1 Active Medications: Current Medications Aripiprazole (Abilify) 20 mg PO [facility]; Protocol Stop: 02/12/19 20:59 Last Admin: 12/18/18 21:01 Dose: 20 mg Atorvastatin Calcium (Lipitor) 40 mg PO HS [facility] Stop: 02/05/19 20:59 Last Admin: 12/18/18 21:01 Dose: 40 mg Benazepril HCl (Lotensin) 20 mg PO DAILY [facility] Stop: 02/06/19 08:59 Last Admin: 12/19/18 08:38 Dose: Not Given Donepezil HCl (Aricept) 10 mg PO HS [facility] Stop: 02/15/19 20:59 Last Admin: 12/18/18 21:02 Dose: 10 mg Escitalopram Oxalate (Lexapro) 10 mg PO DAILY [facility]; Protocol Stop: 02/06/19 08:59 Last Admin: 12/19/18 08:37 Dose: 10 mg Lorazepam (Ativan) 0.5 mg PO Q4HR PRN; Protocol PRN Reason: Anxiety Stop: 02/13/19 08:08 Last Admin: 12/19/18 08:39 Dose: 0.5 mg Senna (Senna) 8.6 mg PO DAILY [facility] Stop: 02/06/19 08:59 Last Admin: 12/19/18 08:39 Dose: 8.6 mg Thiamine HCl (Vitamin B1) 100 mg PO DAILY [facility] Stop: 02/06/19 08:59 Last Admin: 12/19/18 08:39 Dose: 100 mg Zolpidem Tartrate (Ambien) 5 mg PO HS PRN PRN Reason: Insomnia Stop: 02/13/19 08:11 Last Admin: 12/18/18 21:02 Dose: 5 mg General: Alert, Oriented x3, No acute distress HEENT: Atraumatic, PERRLA, EOMI Neck: Supple Cardiovascular: Regular rate, Normal S1, Normal S2 Lungs: Clear to auscultation Abdomen: Bowel sounds, Soft Extremities: no Clubbing, no Cyanosis, no Edema Assessment/Plan - Assessment Assessment: psychosis alzheimer's dementia htn stable ... clonidine PRN depression hyperlipidemia hypokalemia - [facility]. Nutritional Asmnt/Malnutr-PDOC - Dietary Evaluation Malnutrition Findings (Please click <Entered> for more info): Nutritional Asmnt/Malnutrition Start: 12/10/18 11: 27 Text: Status: Complete Freq: Protocol: Document 12/10/18 11:27 VIRGENSOPHIE (Rec: 12/10/18 11:32 VIRGENSOPHIE [email or web address]) Nutritional Asmnt/Malnutrition Patient General Information Nutritional Screening Moderate Risk Diagnosis psychosis Pertinent Medical Hx/Surgical Hx HTN, dementia Subjective Information [facility] Per EMR, PO intake 100% . Current Diet Order/ Nutrition Support cardiac, RUFINO Pertinent Medications lipitor, senna, vit B1 Pertinent Labs 12/07 Ca 10.4 Nutritional Hx/Data Height 1.6 m Height (Calculated Centimeters) 160.0 Current Weight (lbs) 51.71 kg Weight (Calculated Kilograms) 51.7 Weight (Calculated Grams) 05111.5 [place] Body Weight 120 Body Mass Index (BMI) 20.2 Weight Status Approriate GI Symptoms GI Symptoms None Last BM 5/2 Difficult in: None Skin Integrity/Comment: dryness, kimberley 20 Current %PO Good (75-100%) Estimated Nutritional Goals BEE in Kcals: Using Current wt Calories/Kcals/Kg 25-30 Kcals Calculated 7558-8383 Protein: Using Current wt Protein g/k Protein Calculated 52 Fluid: ml 1300-1560ml (1ml/kcal) Nutritional Problem No current Nutrition Prob Problem N/A Malnutrition Alert Is there a minimum of two criteria No selected? Query Text:Check all the applicable criteria. A minimum of two criteria are recommended for diagnosis of either severe or non-severe malnutrition. Malnutrition Related to Morbid Obesity Malnutrition related to morbid obesity No Intervention/Recommendation Comments 1. Continue with cardiac RUFINO diet as ordered. 2. Monitor PO intake, wt, labs and skin integrity 3. F/U as low risk in 7 days Expected Outcomes/Goals Expected Outcomes/Goals 1. PO intake to meet at least 75% of nutritional needs. 2. Wt stability, skin to remain intact, labs to approach WNL.
--- NOTE | 2018-12-19 23:12 | Progress Notes ---
DATE: 12/19/2018 SUBJECTIVE: Chart reviewed and the patient interviewed. Also discussed the patient's condition with the staff and reviewed records and labs. The patient is still confused and is still wandering into other patient's rooms. She is still suspicious, paranoid, fearful, and also thinks that people are talking about her. The patient also is still at times talking to herself. Otherwise, the patient is not talking about this anymore. She also continued to comply taking her medications and no side effects of Lexapro, Abilify, or Aricept. ASSESSMENT: The patient seems to be slightly less psychotic. TREATMENT PLAN: Continue to monitor behavior and condition closely. Also, continue current medications and work on discharge plans. [facility]# [id number]
--- NOTE | 2018-12-20 08:09 | General Progress Note ---
Subjective - Review of Systems Service Date: 12/20/18 Subjective: Patient is awake, alert, no acute distress VS T 97.8 P 73 R 20 BP 148/72 Objective - Results Result Diagrams: 12/07/18 17:55 12/07/18 17:55 Recent Labs: Laboratory Last Values WBC 8.8 Th/cmm (4.8-10.8) 12/07/18 17:55 RBC 4.71 Mil/cmm (3.80-5.20) 12/07/18 17:55 Hgb 13.2 gm/dL (12-16) 12/07/18 17:55 Hct 41.4 % (41.0-60) 12/07/18 17:55 MCV 87.8 fl (81-100) 12/07/18 17:55 MCH 28.0 pg (27.0-31.0) 12/07/18 17:55 MCHC Differential 31.9 pg (28.0-36.0) 12/07/18 17:55 RDW 13.2 % (11.5-20.0) 12/07/18 17:55 Plt Count 257 Th/cmm (150-400) 12/07/18 17:55 MPV 8.5 fl 12/07/18 17:55 Neutrophils % 61.2 % (40.0-80.0) 12/07/18 17:55 Lymphocytes % 28.4 % (20.0-50.0) 12/07/18 17:55 Monocytes % 7.2 % (2.0-10.0) 12/07/18 17:55 Eosinophils % 2.6 % (0.0-5.0) 12/07/18 17:55 Basophils % 0.6 % (0.0-2.0) 12/07/18 17:55 Sodium 136 mEq/L (136-145) 12/07/18 17:55 Potassium 4.0 mEq/L (3.5-5.1) 12/07/18 17:55 Chloride 104 mEq/L (98-107) 12/07/18 17:55 Carbon Dioxide 24.4 mEq/L (21.0-31.0) 12/07/18 17:55 Anion Gap 11.6 (7.0-16.0) 12/07/18 17:55 BUN 17 mg/dL (7-25) 12/07/18 17:55 Creatinine 0.7 mg/dL (0.6-1.2) 12/07/18 17:55 Est GFR ( Amer) > 60.0 ml/min (>90) 12/07/18 17:55 Est GFR (Non-Af Amer) > 60.0 ml/min 12/07/18 17:55 BUN/Creatinine Ratio 24.3 12/07/18 17:55 Glucose 102 mg/dL (70-105) 12/07/18 17:55 Calcium 10.4 mg/dL (8.6-10.3) H 12/07/18 17:55 Total Bilirubin 0.4 mg/dL (0.3-1.0) 12/07/18 17:55 AST 18 U/L (13-39) 12/07/18 17:55 ALT 17 U/L (7-52) 12/07/18 17:55 Alkaline Phosphatase 62 U/L (34-104) 12/07/18 17:55 Total Protein 7.3 gm/dL (6.0-8.3) 12/07/18 17:55 Albumin 4.2 gm/dL (3.7-5.3) 12/07/18 17:55 Globulin 3.1 gm/dL 12/07/18 17:55 Albumin/Globulin Ratio 1.4 (1.0-1.8) 12/07/18 17:55 Triglycerides 109 mg/dL (<150) 12/07/18 17:55 Cholesterol 169 mg/dL (<200) 12/07/18 17:55 LDL Cholesterol Direct 107 mg/dL (75-193) 12/07/18 17:55 HDL Cholesterol 44 mg/dL (23-92) 12/07/18 17:55 - Physical Exam Vitals and I&O: Vital Signs Temp 97.8 F 12/20/18 06:22 Pulse 73 12/20/18 06:22 Resp 20 12/20/18 06:22 BP 148/72 12/20/18 06:22 Pulse Ox 98 12/20/18 06:22 Intake & Output 12/19/18 12/20/18 12/20/18 18:59 06:59 18:59 Intake Total 960 360 Balance 960 360 Intake: Oral 720 360 Other 240 Other: # Voids 3 1 # Bowel Movements 0 0 Active Medications: Current Medications Aripiprazole (Abilify) 25 mg PO HS [facility]; Protocol Stop: 02/18/19 20:59 Atorvastatin Calcium (Lipitor) 40 mg PO HS [facility] Stop: 02/05/19 20:59 Last Admin: 12/19/18 21:24 Dose: 40 mg Benazepril HCl (Lotensin) 20 mg PO DAILY [facility] Stop: 02/06/19 08:59 Last Admin: 12/19/18 08:38 Dose: Not Given Donepezil HCl (Aricept) 10 mg PO HS [facility] Stop: 02/15/19 20:59 Last Admin: 12/19/18 21:24 Dose: 10 mg Escitalopram Oxalate (Lexapro) 10 mg PO DAILY [facility]; Protocol Stop: 02/06/19 08:59 Last Admin: 12/19/18 08:37 Dose: 10 mg Lorazepam (Ativan) 0.5 mg PO Q4HR PRN; Protocol PRN Reason: Anxiety Stop: 02/13/19 08:08 Last Admin: 12/19/18 08:39 Dose: 0.5 mg Senna (Senna) 8.6 mg PO DAILY [facility] Stop: 02/06/19 08:59 Last Admin: 12/19/18 08:39 Dose: 8.6 mg Thiamine HCl (Vitamin B1) 100 mg PO DAILY [facility] Stop: 02/06/19 08:59 Last Admin: 12/19/18 08:39 Dose: 100 mg Zolpidem Tartrate (Ambien) 5 mg PO HS PRN PRN Reason: Insomnia Stop: 02/13/19 08:11 Last Admin: 12/19/18 21:25 Dose: 5 mg General: Alert, Oriented x3, No acute distress HEENT: Atraumatic, PERRLA, EOMI Neck: Supple Cardiovascular: Regular rate, Normal S1, Normal S2 Lungs: Clear to auscultation Abdomen: Bowel sounds, Soft Extremities: no Clubbing, no Cyanosis, no Edema Assessment/Plan - Assessment Assessment: psychosis alzheimer's dementia htn stable ... clonidine PRN depression hyperlipidemia hypokalemia resolved - [facility]. Nutritional Asmnt/Malnutr-PDOC - Dietary Evaluation Malnutrition Findings (Please click <Entered> for more info): Nutritional Asmnt/Malnutrition Start: 12/10/18 11: 27 Text: Status: Complete Freq: Protocol: Document 12/10/18 11:27 VIRGENALEXANDRIACecilia (Rec: 12/10/18 11:32 VIRGENSOPHIE [email or web address]) Nutritional Asmnt/Malnutrition Patient General Information Nutritional Screening Moderate Risk Diagnosis psychosis Pertinent Medical Hx/Surgical Hx HTN, dementia [facility]ive [facility] Per EMR, PO intake 100% . Current Diet Order/ Nutrition Support cardiac, RUFINO Pertinent Medications lipitor, senna, vit B1 Pertinent Labs 12/07 Ca 10.4 Nutritional Hx/Data Height 1.6 m Height (Calculated Centimeters) 160.0 Current Weight (lbs) 51.71 kg Weight (Calculated Kilograms) 51.7 Weight (Calculated Grams) 25222.5 [place] Body Weight 120 Body Mass Index (BMI) 20.2 Weight Status Approriate GI Symptoms GI Symptoms None Last BM 5/2 Difficult in: None Skin Integrity/Comment: dryness, kimberley 20 Current %PO Good (75-100%) Estimated Nutritional Goals BEE in Kcals: Using Current wt Calories/Kcals/Kg 25-30 Kcals Calculated 7598-3450 Protein: Using Current wt Protein g/k Protein Calculated 52 Fluid: ml 1300-1560ml (1ml/kcal) Nutritional Problem No current Nutrition Prob Problem N/A Malnutrition Alert Is there a minimum of two criteria No selected? Query Text:Check all the applicable criteria. A minimum of two criteria are recommended for diagnosis of either severe or non-severe malnutrition. Malnutrition Related to Morbid Obesity Malnutrition related to morbid obesity No Intervention/Recommendation Comments 1. Continue with cardiac RUFINO diet as ordered. 2. Monitor PO intake, wt, labs and skin integrity 3. F/U as low risk in 7 days Expected Outcomes/Goals Expected Outcomes/Goals 1. PO intake to meet at least 75% of nutritional needs. 2. Wt stability, skin to remain intact, labs to approach WNL.
--- NOTE | 2018-12-20 21:23 | Progress Notes ---
DATE: 12/20/2018 SUBJECTIVE: Chart reviewed and the patient interviewed. Also discussed the patient's condition with the staff and reviewed records and labs. The patient is still forgetful and she is still confused. The patient also is still paranoid, thinking that people are talking about her and that somebody is going to harm her. She also has episodes of crying. On the other hand, the patient does note about and she also is compliant with taking her medications. She is still suspicious about her surrounding and she keeps still pacing up and down in a confused state. ASSESSMENT: The patient is still psychotic and confused and considered to be gravely disabled. TREATMENT PLAN: Continue to monitor her behavior and her condition closely. Also, we will increase Abilify to 20 mg at bedtime and continue to follow up. [facility]# [id number]
--- NOTE | 2018-12-21 08:01 | General Progress Note ---
Subjective - Review of Systems Service Date: 12/21/18 Subjective: Patient is awake, alert, no acute distress VS T 97.9 P 76 R 20 BP 111/64 Objective - Results Result Diagrams: 12/07/18 17:55 12/07/18 17:55 Recent Labs: Laboratory Last Values WBC 8.8 Th/cmm (4.8-10.8) 12/07/18 17:55 RBC 4.71 Mil/cmm (3.80-5.20) 12/07/18 17:55 Hgb 13.2 gm/dL (12-16) 12/07/18 17:55 Hct 41.4 % (41.0-60) 12/07/18 17:55 MCV 87.8 fl (81-100) 12/07/18 17:55 MCH 28.0 pg (27.0-31.0) 12/07/18 17:55 MCHC Differential 31.9 pg (28.0-36.0) 12/07/18 17:55 RDW 13.2 % (11.5-20.0) 12/07/18 17:55 Plt Count 257 Th/cmm (150-400) 12/07/18 17:55 MPV 8.5 fl 12/07/18 17:55 Neutrophils % 61.2 % (40.0-80.0) 12/07/18 17:55 Lymphocytes % 28.4 % (20.0-50.0) 12/07/18 17:55 Monocytes % 7.2 % (2.0-10.0) 12/07/18 17:55 Eosinophils % 2.6 % (0.0-5.0) 12/07/18 17:55 Basophils % 0.6 % (0.0-2.0) 12/07/18 17:55 Sodium 136 mEq/L (136-145) 12/07/18 17:55 Potassium 4.0 mEq/L (3.5-5.1) 12/07/18 17:55 Chloride 104 mEq/L (98-107) 12/07/18 17:55 Carbon Dioxide 24.4 mEq/L (21.0-31.0) 12/07/18 17:55 Anion Gap 11.6 (7.0-16.0) 12/07/18 17:55 BUN 17 mg/dL (7-25) 12/07/18 17:55 Creatinine 0.7 mg/dL (0.6-1.2) 12/07/18 17:55 Est GFR ( Amer) > 60.0 ml/min (>90) 12/07/18 17:55 Est GFR (Non-Af Amer) > 60.0 ml/min 12/07/18 17:55 BUN/Creatinine Ratio 24.3 12/07/18 17:55 Glucose 102 mg/dL (70-105) 12/07/18 17:55 Calcium 10.4 mg/dL (8.6-10.3) H 12/07/18 17:55 Total Bilirubin 0.4 mg/dL (0.3-1.0) 12/07/18 17:55 AST 18 U/L (13-39) 12/07/18 17:55 ALT 17 U/L (7-52) 12/07/18 17:55 Alkaline Phosphatase 62 U/L (34-104) 12/07/18 17:55 Total Protein 7.3 gm/dL (6.0-8.3) 12/07/18 17:55 Albumin 4.2 gm/dL (3.7-5.3) 12/07/18 17:55 Globulin 3.1 gm/dL 12/07/18 17:55 Albumin/Globulin Ratio 1.4 (1.0-1.8) 12/07/18 17:55 Triglycerides 109 mg/dL (<150) 12/07/18 17:55 Cholesterol 169 mg/dL (<200) 12/07/18 17:55 LDL Cholesterol Direct 107 mg/dL (75-193) 12/07/18 17:55 HDL Cholesterol 44 mg/dL (23-92) 12/07/18 17:55 - Physical Exam Vitals and I&O: Vital Signs Temp 97.9 F 12/21/18 06:19 Pulse 76 12/21/18 06:19 Resp 20 12/21/18 06:19 BP 111/64 12/21/18 06:19 Pulse Ox 100 12/21/18 06:19 Intake & Output 12/20/18 12/21/18 12/21/18 18:59 06:59 18:59 Intake Total 900 340 Balance 900 340 Intake: Oral 900 340 Other: # Voids 3 2 # Bowel Movements 1 0 Active Medications: Current Medications Aripiprazole 10 mg/ (Aripiprazole 15 mg) 25 mg PO HS [facility] Stop: 02/19/19 20:59 Atorvastatin Calcium (Lipitor) 40 mg PO HS [facility] Stop: 02/05/19 20:59 Last Admin: 12/20/18 22:21 Dose: 40 mg Benazepril HCl (Lotensin) 20 mg PO DAILY [facility] Stop: 02/06/19 08:59 Last Admin: 12/20/18 08:34 Dose: 20 mg Donepezil HCl (Aricept) 10 mg PO HS [facility] Stop: 02/15/19 20:59 Last Admin: 12/20/18 22:26 Dose: 10 mg Escitalopram Oxalate (Lexapro) 10 mg PO DAILY [facility]; Protocol Stop: 02/06/19 08:59 Last Admin: 12/20/18 08:35 Dose: 10 mg Lorazepam (Ativan) 0.5 mg PO Q4HR PRN; Protocol PRN Reason: Anxiety Stop: 02/13/19 08:08 Last Admin: 12/20/18 08:35 Dose: 0.5 mg Memantine (Namenda) 5 mg PO DAILY [facility] Stop: 02/19/19 08:59 Senna (Senna) 8.6 mg PO DAILY [facility] Stop: 02/06/19 08:59 Last Admin: 12/20/18 08:34 Dose: 8.6 mg Thiamine HCl (Vitamin B1) 100 mg PO DAILY [facility] Stop: 02/06/19 08:59 Last Admin: 12/20/18 08:34 Dose: 100 mg Zolpidem Tartrate (Ambien) 5 mg PO HS PRN PRN Reason: Insomnia Stop: 02/13/19 08:11 Last Admin: 12/20/18 22:22 Dose: 5 mg General: Alert, Oriented x3, No acute distress HEENT: Atraumatic, PERRLA, EOMI Neck: Supple Cardiovascular: Regular rate, Normal S1, Normal S2 Lungs: Clear to auscultation Abdomen: Bowel sounds, Soft Extremities: no Clubbing, no Cyanosis, no Edema Assessment/Plan - Assessment Assessment: psychosis alzheimer's dementia htn stable ... clonidine PRN depression hyperlipidemia hypokalemia resolved - Plan Plan: admit to [facility]. continue home meds. Nutritional Asmnt/Malnutr-PDOC - Dietary Evaluation Malnutrition Findings (Please click <Entered> for more info): Nutritional Asmnt/Malnutrition Start: 12/10/18 11: 27 Text: Status: Complete Freq: Protocol: Document 12/10/18 11:27 VIRGENSOPHIE (Rec: 12/10/18 11:32 VIRGENSOPHIE [email or web address]) Nutritional Asmnt/Malnutrition Patient General Information Nutritional Screening Moderate Risk Diagnosis psychosis Pertinent Medical Hx/Surgical Hx HTN, dementia Subjective Information Pt seen in [facility] in dining room. Per EMR, PO intake 100% . Current Diet Order/ Nutrition Support cardiac, RUFINO Pertinent Medications lipitor, senna, vit B1 Pertinent Labs 12/07 Ca 10.4 Nutritional Hx/Data Height 1.6 m Height (Calculated Centimeters) 160.0 Current Weight (lbs) 51.71 kg Weight (Calculated Kilograms) 51.7 Weight (Calculated Grams) 90257.5 [place] Body Weight 120 Body Mass Index (BMI) 20.2 Weight Status Approriate GI Symptoms GI Symptoms None Last BM 5/2 Difficult in: None Skin Integrity/Comment: dryness, kimberley 20 Current %PO Good (75-100%) Estimated Nutritional Goals BEE in Kcals: Using Current wt Calories/Kcals/Kg 25-30 Kcals Calculated 5317-4513 Protein: Using Current wt Protein g/k Protein Calculated 52 Fluid: ml 1300-1560ml (1ml/kcal) Nutritional Problem No current Nutrition Prob Problem N/A Malnutrition Alert Is there a minimum of two criteria No selected? Query Text:Check all the applicable criteria. A minimum of two criteria are recommended for diagnosis of either severe or non-severe malnutrition. Malnutrition Related to Morbid Obesity Malnutrition related to morbid obesity No Intervention/Recommendation Comments 1. Continue with cardiac RUFINO diet as ordered. 2. Monitor PO intake, wt, labs and skin integrity 3. F/U as low risk in 7 days Expected Outcomes/Goals Expected Outcomes/Goals 1. PO intake to meet at least 75% of nutritional needs. 2. Wt stability, skin to remain intact, labs to approach WNL.
--- NOTE | 2018-12-21 23:55 | Progress Notes ---
DATE: 12/21/2018 SUBJECTIVE: The patient in the hospital, apparently wanted to kill herself, suicidal. The patient is bizarre, talking mostly in article terms, talking about the crew on the ship having mutiny against her, talking about her executive vice president and chief financial officer and operations, really not making any sense, continuing to talk in article terms, but stating it is figurative, but it seems like it is literal, still feeling that we are going to harm her, I was going to make mutiny against her, not making any sense, mostly withdrawn, suspicious of others. ASSESSMENT: The patient seems disorganized, bizarre, confused. PLAN: We will continue to monitor. We will be adjusting medications. We will add a dose of Namenda, also to her regimen. JOB# [id number]
--- NOTE | 2018-12-22 08:31 | General Progress Note ---
Subjective - Review of Systems Service Date: 12/22/18 Subjective: Patient is awake, alert, no acute distress VS T 97.7 P 82 R 19 BP 125/63 Objective - Results Result Diagrams: 12/07/18 17:55 12/07/18 17:55 Recent Labs: Laboratory Last Values WBC 8.8 Th/cmm (4.8-10.8) 12/07/18 17:55 RBC 4.71 Mil/cmm (3.80-5.20) 12/07/18 17:55 Hgb 13.2 gm/dL (12-16) 12/07/18 17:55 Hct 41.4 % (41.0-60) 12/07/18 17:55 MCV 87.8 fl (81-100) 12/07/18 17:55 MCH 28.0 pg (27.0-31.0) 12/07/18 17:55 MCHC Differential 31.9 pg (28.0-36.0) 12/07/18 17:55 RDW 13.2 % (11.5-20.0) 12/07/18 17:55 Plt Count 257 Th/cmm (150-400) 12/07/18 17:55 MPV 8.5 fl 12/07/18 17:55 Neutrophils % 61.2 % (40.0-80.0) 12/07/18 17:55 Lymphocytes % 28.4 % (20.0-50.0) 12/07/18 17:55 Monocytes % 7.2 % (2.0-10.0) 12/07/18 17:55 Eosinophils % 2.6 % (0.0-5.0) 12/07/18 17:55 Basophils % 0.6 % (0.0-2.0) 12/07/18 17:55 Sodium 136 mEq/L (136-145) 12/07/18 17:55 Potassium 4.0 mEq/L (3.5-5.1) 12/07/18 17:55 Chloride 104 mEq/L (98-107) 12/07/18 17:55 Carbon Dioxide 24.4 mEq/L (21.0-31.0) 12/07/18 17:55 Anion Gap 11.6 (7.0-16.0) 12/07/18 17:55 BUN 17 mg/dL (7-25) 12/07/18 17:55 Creatinine 0.7 mg/dL (0.6-1.2) 12/07/18 17:55 Est GFR ( Amer) > 60.0 ml/min (>90) 12/07/18 17:55 Est GFR (Non-Af Amer) > 60.0 ml/min 12/07/18 17:55 BUN/Creatinine Ratio 24.3 12/07/18 17:55 Glucose 102 mg/dL (70-105) 12/07/18 17:55 Calcium 10.4 mg/dL (8.6-10.3) H 12/07/18 17:55 Total Bilirubin 0.4 mg/dL (0.3-1.0) 12/07/18 17:55 AST 18 U/L (13-39) 12/07/18 17:55 ALT 17 U/L (7-52) 12/07/18 17:55 Alkaline Phosphatase 62 U/L (34-104) 12/07/18 17:55 Total Protein 7.3 gm/dL (6.0-8.3) 12/07/18 17:55 Albumin 4.2 gm/dL (3.7-5.3) 12/07/18 17:55 Globulin 3.1 gm/dL 12/07/18 17:55 Albumin/Globulin Ratio 1.4 (1.0-1.8) 12/07/18 17:55 Triglycerides 109 mg/dL (<150) 12/07/18 17:55 Cholesterol 169 mg/dL (<200) 12/07/18 17:55 LDL Cholesterol Direct 107 mg/dL (75-193) 12/07/18 17:55 HDL Cholesterol 44 mg/dL (23-92) 12/07/18 17:55 - Physical Exam Vitals and I&O: Vital Signs Temp 97.7 F 12/22/18 05:06 Pulse 82 12/22/18 05:06 Resp 19 12/22/18 05:06 BP 125/63 12/22/18 05:06 Pulse Ox 98 12/22/18 05:06 Intake & Output 12/21/18 12/22/18 12/22/18 18:59 06:59 18:59 Intake Total 800 480 Balance 800 480 Intake: Oral 800 480 Other: # Voids 3 2 # Bowel Movements 0 Active Medications: Current Medications Aripiprazole 10 mg/ (Aripiprazole 15 mg) 25 mg PO HS [facility] Stop: 02/19/19 20:59 Last Admin: 12/21/18 21:18 Dose: 25 mg Atorvastatin Calcium (Lipitor) 40 mg PO HS [facility] Stop: 02/05/19 20:59 Last Admin: 12/21/18 21:19 Dose: 40 mg Benazepril HCl (Lotensin) 20 mg PO DAILY [facility] Stop: 02/06/19 08:59 Last Admin: 12/21/18 09:23 Dose: 20 mg Donepezil HCl (Aricept) 10 mg PO HS [facility] Stop: 02/15/19 20:59 Last Admin: 12/21/18 21:20 Dose: 10 mg Escitalopram Oxalate (Lexapro) 10 mg PO DAILY [facility]; Protocol Stop: 02/06/19 08:59 Last Admin: 12/21/18 09:23 Dose: 10 mg Lorazepam (Ativan) 0.5 mg PO Q4HR PRN; Protocol PRN Reason: Anxiety Stop: 02/13/19 08:08 Last Admin: 12/21/18 16:55 Dose: 0.5 mg Memantine (Namenda) 5 mg PO DAILY [facility] Stop: 02/19/19 08:59 Last Admin: 12/21/18 09:23 Dose: 5 mg Senna (Senna) 8.6 mg PO DAILY [facility] Stop: 02/06/19 08:59 Last Admin: 12/21/18 09:23 Dose: 8.6 mg Thiamine HCl (Vitamin B1) 100 mg PO DAILY [facility] Stop: 02/06/19 08:59 Last Admin: 12/21/18 09:23 Dose: 100 mg Zolpidem Tartrate (Ambien) 5 mg PO HS PRN PRN Reason: Insomnia Stop: 02/13/19 08:11 Last Admin: 12/21/18 21:20 Dose: 5 mg General: Alert, Oriented x3, No acute distress HEENT: Atraumatic, PERRLA, EOMI Neck: Supple Cardiovascular: Regular rate, Normal S1, Normal S2 Lungs: Clear to auscultation Abdomen: Bowel sounds, Soft Extremities: no Clubbing, no Cyanosis, no Edema Assessment/Plan - Assessment Assessment: psychosis alzheimer's dementia htn stable ... clonidine PRN depression hyperlipidemia hypokalemia resolved - Plan Plan: admit to [facility]. continue home meds. Nutritional Asmnt/Malnutr-PDOC - Dietary Evaluation Malnutrition Findings (Please click <Entered> for more info): Nutritional Asmnt/Malnutrition Start: 12/10/18 11: 27 Text: Status: Complete Freq: Protocol: Document 12/10/18 11:27 LCAL[place]AND[place]AG (Rec: 12/10/18 11:32 [email or web address] [email or web address]) Nutritional Asmnt/Malnutrition Patient General Information Nutritional Screening Moderate Risk Diagnosis psychosis Pertinent Medical Hx/Surgical Hx HTN, dementia Subjective Information Pt seen in [facility] in dining room. Per EMR, PO intake 100% . Current Diet Order/ Nutrition Support cardiac, RUFINO Pertinent Medications lipitor, senna, vit B1 Pertinent Labs 12/07 Ca 10.4 Nutritional Hx/Data Height 1.6 m Height (Calculated Centimeters) 160.0 Current Weight (lbs) 51.71 kg Weight (Calculated Kilograms) 51.7 Weight (Calculated Grams) 89491.5 [place] Body Weight 120 Body Mass Index (BMI) 20.2 Weight Status Approriate GI Symptoms GI Symptoms None Last BM 5/2 Difficult in: None Skin Integrity/Comment: dryness, kimberley 20 Current %PO Good (75-100%) Estimated Nutritional Goals BEE in Kcals: Using Current wt Calories/Kcals/Kg 25-30 Kcals Calculated 4873-8852 Protein: Using Current wt Protein g/k Protein Calculated 52 Fluid: ml 1300-1560ml (1ml/kcal) Nutritional Problem No current Nutrition Prob Problem N/A Malnutrition Alert Is there a minimum of two criteria No selected? Query Text:Check all the applicable criteria. A minimum of two criteria are recommended for diagnosis of either severe or non-severe malnutrition. Malnutrition Related to Morbid Obesity Malnutrition related to morbid obesity No Intervention/Recommendation Comments 1. Continue with cardiac RUFINO diet as ordered. 2. Monitor PO intake, wt, labs and skin integrity 3. F/U as low risk in 7 days Expected Outcomes/Goals Expected Outcomes/Goals 1. PO intake to meet at least 75% of nutritional needs. 2. Wt stability, skin to remain intact, labs to approach WNL.
== END 2018-12-22 18:40 | DRG 885 ==
LOC: ER 17:29 → GERO 18:30
PROVIDERS: ADMIT Psychiatry & Neurology Psychiatry; ATTEND Psychiatry & Neurology Psychiatry
DX: F33.3 Major depressive disorder, recurrent, severe with psychotic symptoms (principal); I10 Essential (primary) hypertension; E78.5 Hyperlipidemia, unspecified; E87.6 Hypokalemia; F02.80 Dementia in other diseases classified elsewhere, unspecified severity, without behavioral disturbance, psychotic disturbance, mood disturbance, and anxiety; G30.9 Alzheimer's disease, unspecified; F29 Unspecified psychosis not due to a substance or known physiological condition
CPT/HCPCS: 36415-UA; 80053-TC; 80061-TC; 83036-90; 85025-TC; 90899; G0410; J1200; J1630; J2060